=== PATIENT | female | born 1945 | race Caucasian/White ===

== ENCOUNTER 2019-02-16 12:49 | Outpatient (CLI) | payer MEDICARE, OTHER, SELFPAY ==
[2019-02-16 19:03] LABS: Calcium 9.9 mg/dL (8.5-10.1)
[2019-02-17 16:08] LABS: C-Peptide 4.4 ng/mL (1.1 - 4.4)
== END 2019-02-16 13:09 ==
PROVIDERS: PCP Family Medicine; Visit Provider Internal Medicine Endocrinology, Diabetes & Metabolism
DX: E21.0 Primary hyperparathyroidism (principal)
CPT/HCPCS: 36415; 82310; 84681

== ENCOUNTER 2019-03-09 08:44 | Outpatient (CLI) | payer MEDICARE, OTHER, SELFPAY ==
[2019-03-09 10:02] LABS: Abs Immature Grans 0.02 k/cumm (0.0-0.09); Absolute Basophil Count 0.03 k/cumm (0.0-0.2); Absolute Eosinophil Count 0.18 k/cumm (0.0-0.7); Absolute Monocyte Count 0.58 k/cumm (0.11-0.7); Absolute Neutrophil Count 2.98 k/cumm (1.2-6.7); Basophils % 0.5; Eosinophils % 3.1; HCT 42.5 % (36.0-46.0); HGB 13.8 g/dL (12.0-15.5); Immature Grans % 0.3; Lymphocytes % 34.5; Mean Corp. HGB Concentration 32.5 g/dL (32.0-36.0); Mean Corpuscular Hemoglobin 29.4 pg (27.0-33.0); Mean Corpuscular Volume 90.4 fL (80-95); Mean Platelet Volume 9.2 fL (8.0-11.0); Neutrophils % 51.6; Platelet Count 320 x1000/uL (130-400); RBC Distribution Width 13.8 % (11.7-14.6); White Blood Cell Count 5.79 k/cumm (4.4-10.8)
[2019-03-09 10:54] LABS: ESR 23 MM/HR (0-30)
== END 2019-03-09 09:04 ==
PROVIDERS: PCP Family Medicine; Visit Provider Internal Medicine Endocrinology, Diabetes & Metabolism
DX: R53.83 Other fatigue (principal)
CPT/HCPCS: 36415; 85652; 85025; 86140

== ENCOUNTER 2021-05-06 14:30 | Outpatient (REF) | payer MEDICARE, OTHER, SELFPAY ==
[2021-05-08 11:35] LABS: COVID-19 RT-PCR UVMMC Result Negative (Negative)
== END 2021-05-06 14:31 | disposition home or self-care (01) ==
LOC: LBN 14:30
PROVIDERS: PCP Family Medicine; Visit Provider Nurse Practitioner Family
DX: Z20.822 Contact with and (suspected) exposure to COVID-19 (principal); J06.9 Acute upper respiratory infection, unspecified
CPT/HCPCS: U0003; U0005

== ENCOUNTER 2021-05-06 14:58 | Outpatient (CLI) | payer MEDICARE, OTHER, SELFPAY ==
--- NOTE | 2021-05-06 14:42 | DI.RAD_ITS ---
Exam(s) XR CHEST 2V PA LATERAL EXAM: XR CHEST 2V PA LATERAL CLINICAL HISTORY: HYPOXEMIA R09.02 COUGH R05 TECHNIQUE: COMPARISON: CR CHEST 2 VIEWS PA,LAT from 08/23/2016 FINDINGS: The heart is not enlarged. Lungs appear predominantly clear with minimal changes of scarring. No pl eural effusion seen. On the lateral view there is question of increased prominence of the right hilar contour comparison w ith prior chest radiograph August 2016. Possibility of a hilar mass is not excluded. Correlation with chest CT recommended. IMPRESSION: Question right hilar enlargement since August 2016 chest radiograph, chest CT recommended to rule o ut right hilar mass. RADIATION DOSE DELIVERED: Total DLP
== END 2021-05-06 15:18 ==
PROVIDERS: PCP Family Medicine; Visit Provider Nurse Practitioner Family
DX: R09.02 Hypoxemia (principal); R05 Cough
CPT/HCPCS: 71046

== ENCOUNTER 2021-09-11 10:58 | Outpatient (REF) | payer MEDICARE, OTHER, SELFPAY ==
[2021-09-12 16:52] LABS: COVID-19 RT-PCR UVMMC Result Negative (Negative)
== END 2021-09-11 10:59 | disposition home or self-care (01) ==
LOC: LBN 10:58
PROVIDERS: PCP Family Medicine; Visit Provider Physician Assistant Medical
DX: Z20.822 Contact with and (suspected) exposure to COVID-19 (principal); J02.9 Acute pharyngitis, unspecified
CPT/HCPCS: U0003; U0005

== ENCOUNTER 2022-02-02 14:24 | Outpatient (CLI) | payer MEDICARE, OTHER, SELFPAY ==
--- NOTE | 2022-02-02 14:14 | DI.RAD_ITS ---
Exam(s) XR KNEE LT 3V AP,LAT,SARA EXAM: XR KNEE LT 3V AP,LAT,SARA CLINICAL HISTORY: pain. TECHNIQUE: 2D digital imaging was performed. Three images were obtained. AP, lateral and oblique vi ews were obtained. COMPARISON: No priors for comparison. FINDINGS: BONES: There are stable post operative changes present. No fracture or dislocation. Dystrophic calci fication is seen at the superior and inferior aspect of the patella. JOINTS: The orthopedic hardware is in good position. SOFT TISSUE: Normal. IMPRESSION: Stable postoperative changes. DATA REPOSITORY: RADIATION DOSE DELIVERED:
--- NOTE | 2022-02-02 14:15 | DI.RAD_ITS ---
Exam(s) XR KNEE RT 3V AP,LAT,SARA EXAM: XR KNEE RT 3V AP,LAT,SARA CLINICAL HISTORY: pain. TECHNIQUE: 2D digital imaging was performed of the right knee. Three views obtained. AP, lateral an d PA tunnel views were obtained. COMPARISON: No previous for comparison. FINDINGS: BONES: No acute fracture is present. No bony destructive lesion is seen. There is an enthesophyte at the inferior aspect of the patella. JOINTS: There is narrowing of the lateral femoral tibial and patellofemoral joint. Spurring is seen at the posterior patella. A small joint effusion is present. SOFT TISSUE: Normal. IMPRESSION: Mild degenerative changes of the knee. DATA REPOSITORY: RADIATION DOSE DELIVERED:
--- NOTE | 2022-02-02 14:45 | DI.RAD_ITS ---
Exam(s) XR LUMBAR SPINE AP, LAT EXAM: XR LUMBAR SPINE AP, LAT CLINICAL HISTORY: pain. TECHNIQUE: 2D digital imaging was performed of the lumbar spine. Three images were obtained. AP, l ateral, and L5-S1 spot views were obtained. COMPARISON: No previous for comparison. FINDINGS: BONES: No fracture or destructive lesion. Endplate osteophytes are present throughout the lumbar spin e. Degenerative changes of the facets are present at multiple levels, particularly at the L4-5 and L 5-S1 level. DISKS: Disc space narrowing is seen at T12-L1 and L1-L2. ALIGNMENT: Mild right convex lumbar scoliosis. No spondylolysis or spondylolisthesis. SOFT TISSUE: Surgical clips are seen in the right upper quadrant of the abdomen. Phleboliths are see n in the pelvis. IMPRESSION: Moderate degenerative changes. DATA REPOSITORY: RADIATION DOSE DELIVERED:
== END 2022-02-02 14:25 | disposition home or self-care (01) ==
PROVIDERS: PCP Family Medicine; Referring Provider Family Medicine; Visit Provider Physician Assistant Surgical
DX: M70.52 Other bursitis of knee, left knee (principal); M47.9 Spondylosis, unspecified; Z96.652 Presence of left artificial knee joint
CPT/HCPCS: 73562; 99203; 72100

== ENCOUNTER → 2022-02-25 01:54 | Outpatient (CLI) | payer MEDICARE, OTHER, SELFPAY ==
--- NOTE | 2022-02-25 07:00 | DI.MRI_ITS ---
Exam(s) MR LUMBAR SPINE WO EXAM: MR LUMBAR SPINE WO CLINICAL HISTORY: back pain, lumbar radiculopathy,m54.16. TECHNIQUE: Multiplanar multisequence MRI of the Lumbar spine was performed. COMPARISON: CR XR LUMBAR SPINE AP, LAT from 02/02/2022 FINDINGS: Multisequence MRI scan lumbosacral spine was performed. Plain films of 02/02/2022 were reviewed. Conus medullaris is at normal T12-L1 level. There is no evidence of conus mass nor subjacent clumpin g of intrathecal nerve roots to suggest arachnoiditis. The distal thecal sac appears unremarkable.Th ere is no evidence of Tarlov intrasacral cysts nor other significant findings within the sacral canal Bones:There are no fractures nor ominous osseous lesions in the lumbar vertebral bodies and visualize d sacrum. There is a mild scoliosis convex right in the lumbar spine. With respect to the individual levels... T12-L1: Unremarkable L1-2: Normal disc height and signal. No disc herniation nor central canal stenosis.No foraminal steno sis L2-3: Normal disc height. No disc herniation nor central canal stenosis.No foraminal stenosis.No face t arthropathy. L3-4: Mild decreased disc height sent at this level and there is broad annular bulging. This bulging is most severe central posterior subligamentous. More prominent disc height loss seen on the left s katar[place] than the right side. Broad annular bulging results moderate-severe central spinal canal signific ant impression of the anterior thecal sac.There are moderate degenerative changes in the facet joints at this level.The annular bulging does not extend appreciably into the neural foramina and there is no true foraminal stenosis at this level. L4-5: Normal disc height and signal. Mild annular bulging but no significant focal disc herniation. No significant central spinal canal stenosis. There are moderate degenerative changes in both facet joints. There is no significant narrowing of the exiting neural foramina. L5-S1: Normal disc height and signal. No evidence of disc herniation. No central canal stenosis. N o foraminal stenosis. However, there are moderate degenerative changes in both facet joints this. Soft tissues: paraspinal soft tissues appear unremarkable. IMPRESSION: 1. The most significant findings at L3-4 level where there is moderate-severe central spinal canal st enosis due to broad annular bulging with a superimposed central subligamentous disc protrusion. Sign ificant impression on the anterior aspect of thecal sac. Short AP dimensions the pedicles and degene rative facet arthropathy also contributes to the central spinal canal stenosis at this level. There is no true foraminal stenosis at this level. 2. Other findings as above. Mild scoliosis convex right also evident. 3. No significant osseous lesions. No listhesis. DATA REPOSITORY:
== END ==
PROVIDERS: PCP Family Medicine; Visit Provider Student in an Organized Health Care Education/Training Program
DX: M54.16 Radiculopathy, lumbar region (principal)
CPT/HCPCS: 72148

== ENCOUNTER 2022-11-17 10:48 | Emergency (ER) | payer MEDICARE, SELFPAY ==
[2022-11-17 10:52] VITALS: BP 172/79; PULSE 72; RESP 16; TEMP 36.6; O2SAT 95
--- NOTE | 2022-11-17 11:00 | DI.CT_ITS ---
Exam(s) CT CHEST/ABD/PEL WO EXAM: CT CHEST/ABD/PEL WO CLINICAL HISTORY: Right flank pain 3 days status post fall? Rib fx. TECHNIQUE: Imaging Protocol: Axial computed tomography images with coronal and sagittal reformatted images were created and reviewed CONTRAST MATERIAL: Intravenous: none Oral: None COMPARISON: CR XR LUMBAR SPINE AP, LAT from 02/02/2022 MR MR LUMBAR SPINE WO from 02/25/2022 FINDINGS: CHEST: LUNGS: Mild benign-appearing increased markings-mild infiltrate noted in the medial basal segment of the right lower lobe. No pleural effusions. No other pulmonary findings. No bronchiectasis evident . No findings in the trachea and mainstem bronchi.. MEDIASTINUM: No obvious hilar nor mediastinal adenopathy. No mediastinal hematoma. No sternal fractu re. Visualized thyroid appears inhomogeneous. Contains possible nodules. CARDIAC: Heart size is normal. There is no pericardial effusion.Caliber of the thoracic aorta is wit hin normal limits. OSSEOUS: There are deformities of the right transverse processes of L1 and L2 are noted but may not be acute given the appearance.No acute rib fractures evident. No compression fractures of the verteb ral bodies.. ABDOMEN: There is no ascites. No evidence of mesenteric nor bowel wall hematoma. LIVER: There are no obvious focal hepatic lesions evident of this noninfused study. No evidence of l iver laceration. GALLBLADDER/BILIARY: Gallbladder surgically absent. CBD is not dilated. PANCREAS: No evidence of obvious pancreatic mass nor dilatation of the pancreatic duct. SPLEEN: Spleen size upper normal. No evidence of splenic laceration. ADRENALS: There are no significant adrenal masses. KIDNEYS: No evidence of renal laceration or subcapsular hematoma.. No focal renal findings. No calc betsy. No hydronephrosis. No incidental masses in the kidneys. ABDOMINAL AORTA: Abdominal aorta is not enlarged. LYMPH NODES: There is no retroperitoneal nor para-aortic adenopathy. ABDOMINAL WALL/GI: No evidence of significant anterior abdominal wall nor inguinal hernia. No evidence of bowel obstruction. PELVIS: LYMPH NODES: There is no intrapelvic nor inguinal adenopathy. GI: No evidence of appendicitis.There is sigmoid diverticulosis. No evidence of obvious acute divert iculitis. No free fluid. URINARY BLADDER: No calculi nor obvious masses evident REPRODUCTIVE: Uterus is surgically absent. No abnormal adnexal masses. No free fluid in the pelvis. Bilateral phleboliths noted in the lower pelvis. OSSEOUS: No fractures in the pelvis and hips. IMPRESSION: 1. There are deformities of the right transverse processes of L1 and L2. These may be related to non acute fractures. Correlation with site of tenderness recommended. No rib fractures evident. No com pression fractures. 2. Mild benign-appearing increased markings in the right lower lobe medial basal segment. No pleural effusions. 3. Inhomogeneous appearance of the thyroid gland incidentally noted. May represent presence of nodul es. 4. Sigmoid diverticulosis but no evidence of acute diverticulitis. 5. Gallbladder and uterus are surgically absent. Report discussed with ER provider. RADIATION DOSE DELIVERED: 1,661.13mGy.cm Total DLP DATA REPOSITORY: All CT scans at this facility are submitted to the National Radiology Data Registry (NRDR) Dose Index Registry (DIR) with the [employer] (A[employer]). RADIATION OPTIMIZATION: All CT scans at this facility use at least one of these dose optimization te chniques: automated exposure control; mA and/or kV adjustment per patient size (includes targeted exa ms where dose is matched to clinical indication); or iterative reconstruction.
--- NOTE | 2022-11-17 11:07 | ED.GENADUL_ITS ---
Discharge Plan Disposition Patient Disposition: Home Discharge Details Clinical Impression: Right-sided chest wall pain, History of falling, Thyroid incidentaloma Primary Care Provider: Jack Daniel ED Provider: Burt Murphy Home Meds and New Rx's Prescriptions: New lidocaine [Lidoderm] 5 % adhesive patch,medicated 1 patch topical DAILY Qty: 15 0RF Rx Instructions: leave on most painful area for up to 12 hrs Continued cholecalciferol (vitamin D3) 50 mcg (2,000 unit) capsule 50 mcg PO DAILY Alive Once Daily Women 50 Plus 800-100 mcg tablet PO sumatriptan succinate [Imitrex] 50 mg tablet 50 mg PO ONCE fluticasone propion-salmeterol [Advair Diskus] 100-50 mcg/dose blister with device 1 inh inhalation BID vitamin B complex [B Complex-Vitamin B12] Tablet 1 tab PO DAILY omeprazole [Prilosec] 20 mg capsule,delayed release(DR/EC) 40 mg PO DAILY hydrochlorothiazide 25 mg tablet 25 mg PO DAILY sertraline 25 mg tablet 50 mg PO DAILY propranolol 10 mg tablet 10 mg PO BID bupropion HCl 300 mg tablet extended release 24 hr 300 mg PO QAM aspirin [Aspir-81] 81 MG tablet,delayed release (DR/EC) 81 mg PO DAILY losartan 25 MG tablet 25 mg PO QAM albuterol sulfate [ProAir HFA] 200 PUFF HFA aerosol inhaler 2 puff Inhalation Q6H PRN PRNQty: 1 0RF (DME) AeroChamber Plus Z Stat Sm Msk 1 EACH spacer 1 ea Miscellaneous Q6H PRN Qty: 1 0RF bupropion HCl 300 mg tablet extended release 24 hr 300 mg PO DAILY Discharge Instructions Instructions: Chest Wall Pain (ED) Additional Instructions: Please read all of the information that accompanies these instructions. You were seen in the emergency department for your chest pain. Your CAT scan showed no sign of any rib fractures. As we discussed, your CAT scan did show signs that you may have a nodule in your thyroid. Please schedule an appointment with your primary care provider later this week for reassessment as she would likely benefit from an ultrasound of her thyroid. Please return to the emergency department if you develop shortness of breath any worsening pain or any rashes to your chest. Discharge Data Discharge Date/Time-TO BE ENTERED AT DEPARTURE: 11/17/22 14:23 Medical Decision Making This is a normothermic and not tachycardic 77-year-old female with right flank pain 3 days status post slip and fall concerning for rib fractures. Her primary survey is intact. She has a reassuring shock index. She is not anticoagulated. She did not strike her head to suggest benefit from CT head. She is not having any neck or back pain to suggest benefit from CT cervical spine nor T nor L reconstructions. She has not been nauseous nor vomiting to suggest intra- abdominal injury. She did not have any preceding loss of consciousness nor chest pain so I do not feel this requires an ECG. No syncope to suggest PE. She has not been vomiting to suggest benefit from assessment of electrolytes. Based on her age if she has rib fractures will complete incentive spirometry. Will treat with low-dose ibuprofen acetaminophen and Lidoderm patch. 2:[address] scan with no acute rib fractures. Patient did have some deformities to the right transverse processes at L1 and L2. She had no tenderness in this area and these are likely subacute. She did have an abnormality in her thyroid for which I will reach out to her primary care provider to request an outpatient thyroid ultrasound. Patient does note that she has parathyroid disease. I ordered her an outpatient thyroid ultrasound. I asked health community services manager Mary to help arrange outpatient primary care follow-up. HPI General Date/Time Provider Initiated Documentation: 11/17/22 11:07 . HPI Narrative: This is a 77-year-old female with remote history of cholecystectomy not anticoagulated arriving following a fall. Patient reports she lives with her . 3 days ago she was going out to the shed to try to bring something indoors and then she slipped on the ice. She landed on a chunk of ice on her right side. She was able to stand up and subsequently fell again. She felt too sore on the day of her fall to come to the emergency department. She felt im proved yesterday however today developed some right-sided flank pain. Her pain is worse when she takes a deep breath. She denies chest pain, loss of consciousness, nausea, vomiting, and any pain in her extremities. Related Data Home Medications Medication Instructions Recorded Confirmed aspirin 81 mg tablet,delayed 81 mg PO DAILY 01/28/13 11/17/22 release (Aspir-) losartan 25 mg tablet 25 mg PO QAM 07/06/14 11/17/22 albuterol sulfate 90 mcg/actuation 2 puff inhalation Q6H PRN PRN #1 08/23/16 02/04/22 aerosol inhaler (ProAir HFA) inh inhalational spacing device ##1 08/23/16 02/04/22 (AeroChamber Plus Z Stat Small Mask) bupropion HCl 300 mg 24 hr tablet, 300 mg PO QAM 12/09/21 02/04/22 extended release cholecalciferol (vitamin D3) 50 50 mcg PO DAILY 12/09/21 11/17/22 mcg (2,000 unit) capsule fluticasone 100 mcg-salmeterol 50 1 inh inhalation BID 12/09/21 02/04/22 mcg/dose blistr powdr for inhalation (Advair Diskus) hydrochlorothiazide 25 mg tablet 25 mg PO DAILY 12/09/21 11/17/22 multivit,mineral-folic acid 800 tab PO 12/09/21 02/04/22 mcg-vit K 100 mcg-herbal no.289 tablet (Alive Once Daily Women 50 Plus) omeprazole 20 mg capsule,delayed 40 mg PO DAILY 12/09/21 11/17/22 release (Prilosec) propranolol 10 mg tablet 10 mg PO BID 12/09/21 02/04/22 sertraline 25 mg tablet 50 mg PO DAILY 12/09/21 11/17/22 sumatriptan succinate 50 mg tablet 50 mg PO ONCE 12/09/21 02/04/22 (Imitrex) vitamin B complex (B 1 tab PO DAILY 12/09/21 02/04/22 Complex-Vitamin B12 tablet) bupropion HCl 300 mg 24 hr tablet, 300 mg PO DAILY 11/17/22 11/17/22 extended release lidocaine 5 % topical patch 1 patch topical DAILY #15 ea 11/17/22 (Lidoderm) Previous Rx's Medication Instructions Recorded albuterol sulfate 90 mcg/actuation 2 puff inhalation Q6H PRN PRN #1 08/23/16 aerosol inhaler (ProAir HFA) inh inhalational spacing device ##1 08/23/16 (AeroChamber Plus Z Stat Small Mask) lidocaine 5 % topical patch 1 patch topical DAILY #15 ea 11/17/22 (Lidoderm) Allergies Allergy/AdvReac Type Severity Reaction Status Date / Time iodine Allergy Severe Anaphylaxsi Unverified 02/02/22 14:05 s shellfish derived Allergy Severe Anaphylaxsi Unverified 02/02/22 14:05 s General Stated Complaint: Chest/Rib FAHAD: 4 PFSH All Active Problems (Updated 11/17/22 @ 14:10 by Burt Murphy MD) Right-sided chest wall pain (Acute) History of falling (Acute) Thyroid incidentaloma (Acute) Pes anserine bursitis (Acute) Spondylosis (Acute) Cardiac murmur (Acute) ECHO 10/2014 Hyperlipidemia (Acute) Osteoporosis (Chronic) Hyperparathyroidism (Acute) Asthma, mild intermittent (Acute) Depression (Chronic) Hypertension (Chronic) Sensorineural hearing loss of combined sites, bilateral (Acute 07/20/16) Prognathism (Acute 12/12/14) Obstructive sleep apnea (Acute 12/12/14) Medical History (Updated 11/17/22 @ 14:10 by Burt Murphy MD) Abnormal colonoscopy De Quervain's tenosynovitis GERD (gastroesophageal reflux disease) Retinal detachment Tubular adenoma polyp of rectum Surgical History (Updated 12/09/21 @ 09:33 by Nathan Multani RN) H/O umbilical hernia repair History of appendectomy 1976 History of cholecystectomy 1976 History of hysterectomy total w/BSO--1984 History of local excision of skin lesion 06/04/17 History of total left knee replacement 05/13/15 Social History Smoking/Tobacco Use Status: Never Smoking risk assessment performed?: Yes Drug use: Never Do you feel safe at home: Yes Do you feel safe in your relationship?: Yes Exam Narrative Exam Narrative: General: Well-appearing in no acute distress speaking in complete sentences. Head: Normocephalic, atraumatic Ear, nose, mouth, throat: Grossly normal inspection. Normal voice, handling secretions normally. Neck: Trachea midline. Cardiovascular: Well-perfused distal extremities. Regular rate and rhythm Respiratory: Nonlabored respiration. Clear lungs bilaterally. Gastrointestinal: Nondistended abdomen. Right-sided flank and superficial right upper quadrant tenderness. No rebound. No ecchymoses. No lacerations. Musculoskeletal: No edema. Moving all 4 extremities spontaneously. Skin: Normal for age and race, grossly normal temperature and turgor. No acute rash. Neurologic: Alert and appropriate, no apparent acute deficits. Psychiatric: Mood and manner are appropriate. Grooming and personal hygiene are appropriate. Course Vital Signs Vital signs: Vital Signs Temperature 36.6 C 11/17/22 10:52 Pulse 72 11/17/22 10:52 Respiratory Rate 16 11/17/22 10:52 Blood Pressure 172/79 H 11/17/22 10:52 Pulse Oximetry 95 11/17/22 10:52 Temperature 36.6 C 11/17/22 10:52 Temperature Source Oral 11/17/22 10:52 Pulse 72 11/17/22 10:52 Respiratory Rate 16 11/17/22 10:52 Blood Pressure 172/79 H 11/17/22 10:52 Blood Pressure Position Sitting 11/17/22 10:52 Pulse Oximetry 95 11/17/22 10:52 Oxygen Delivery Method Room Air 11/17/22 10:52 Oxygen Flow Rate 0 11/17/22 10:52 Pain Level 8 11/17/22 10:52 Comment Takes BP meds in AM but has not had them yet today 11/17/22 10:52
[2022-11-17] MEDS: Lidocaine 5% Patch 1 PATCH TP (11:28)
[2022-11-17] MEDS: Ibuprofen 200 MG TAB PO (11:29)
[2022-11-17] MEDS: Acetaminophen 500 MG TAB 1000 MG PO (11:29)
[2022-11-17 12:44] VITALS: BP 133/85; PULSE 65; TEMP 36.4; O2SAT 92
[2022-11-17 14:22] VITALS: BP 143/82; PULSE 66; RESP 18; TEMP 36.2; O2SAT 91
--- NOTE | 2022-11-17 15:15 | NUR.NOTE ---
Referral made by Dr Murphy to PCP for incidental thyroid abnormality in 10 days. Put the referral in the care manger's box for follow up assistance.Nursing Note:
== END 2022-11-17 14:23 | disposition home or self-care (01) ==
PROVIDERS: Emergency Provider Emergency Medicine; PCP Family Medicine
DX: R07.89 Other chest pain (principal); E04.1 Nontoxic single thyroid nodule; Z91.81 History of falling; G89.11 Acute pain due to trauma; W00.0XXA Fall on same level due to ice and snow, initial encounter; R10.811 Right upper quadrant abdominal tenderness
CPT/HCPCS: 71250; 99284; 74176

== ENCOUNTER 2022-12-02 01:20 | Outpatient (CLI) | payer MEDICARE, SELFPAY ==
--- NOTE | 2022-12-02 | DI.US_ITS ---
Exam(s) US THYROID EXAM: US THYROID CLINICAL HISTORY: ABNL CT OF THYROID,INHOMOGENEOUS APPEARANCE,? NODULES. TECHNIQUE: Ultrasound thyroid performed using standard protocol. COMPARISON: CT CT CHEST/ABD/PEL WO from 11/17/2022 FINDINGS: ISTHMUS: 6 mm RIGHT LOBE: Size: 3.5 x 1.6 x 1.9 cm Echogenicity: Normal. Vascularity: Normal. Nodules: There is a 0.6 x 0.4 x 0.6 cm solid hypoechoic nodule in the right lobe of the thyroid gland . It has smooth margins and no echogenic foci. Is consistent with a TI rads level 4 nodule. Due to its size, no follow-up is recommended. No other suspicious right thyroid nodules are seen. LEFT LOBE: Size: 3.4 x 1.8 x 1.5 cm Echogenicity: Normal. Vascularity: Normal. Nodules: There is small cysts seen in the left lobe. No suspicious thyroid nodules are present. OTHER FINDINGS: None. IMPRESSION: No suspicious thyroid nodules are seen that would require follow-up. DATA REPOSITORY:
== END 2022-12-02 01:40 ==
LOC: DI 01:21
PROVIDERS: PCP Family Medicine; Visit Provider Emergency Medicine
DX: E04.1 Nontoxic single thyroid nodule (principal); E07.89 Other specified disorders of thyroid
CPT/HCPCS: 76536

== ENCOUNTER 2023-02-01 16:19 | Outpatient (CLI) | payer MEDICARE, SELFPAY ==
--- NOTE | 2023-02-01 | DI.RAD_ITS ---
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 TECHNIQUE: 2D digital imaging was performed. Three views. COMPARISON: No exams were available for comparison FINDINGS: BONES: Mildly displaced fracture of the proximal phalanx of the 2nd toe. No involvement of the artic ular surface visible. No additional fractures.. No bony destructive lesion is seen. Planet plantar calcaneal spur. JOINTS: No dislocation present. SOFT TISSUE: Normal. IMPRESSION: Fracture of proximal phalanx of the 2nd toe. DATA REPOSITORY: RADIATION DOSE DELIVERED:
== END 2023-02-01 16:39 ==
LOC: DI 16:21
PROVIDERS: PCP Family Medicine; Visit Provider Physician Assistant Medical
DX: S92.515A Nondisplaced fracture of proximal phalanx of left lesser toe(s), initial encounter for closed fracture (principal); X58.XXXA Exposure to other specified factors, initial encounter
CPT/HCPCS: 73630

== ENCOUNTER 2023-09-23 13:05 | Outpatient (CLI) | payer MEDICARE, SELFPAY ==
--- NOTE | 2023-09-23 09:46 | DI.RAD_ITS ---
Exam(s) XR LUMBAR SPINE AP, LAT EXAM: XR LUMBAR SPINE AP, LAT CLINICAL HISTORY: left hip pain. TECHNIQUE: 2D digital imaging was performed of the lumbar spine. Two images were obtained. AP and lateral views were obtained. COMPARISON: CR XR LUMBAR SPINE AP, LAT from 02/02/2022 MR MR LUMBAR SPINE WO from 02/25/2022 FINDINGS: BONES: No fracture or destructive lesion. Endplate osteophytes are present throughout the lumbar spin e. There are degenerative changes of the facets seen at L4-5 and L5-S1. DISKS: There is disc space narrowing at T12-L1. ALIGNMENT: Lumbar spinal alignment is within normal limits. No spondylolysis or spondylolisthesis. SOFT TISSUE: Surgical clips are seen in the right upper quadrant. IMPRESSION: Moderate degenerative changes are seen in the lumbar spine. DATA REPOSITORY: RADIATION DOSE DELIVERED:
== END 2023-09-23 13:06 | disposition home or self-care (01) ==
LOC: DIORS 13:05
PROVIDERS: PCP Family Medicine; Referring Provider Family Medicine; Visit Provider Student in an Organized Health Care Education/Training Program
DX: M47.9 Spondylosis, unspecified (principal); M70.62 Trochanteric bursitis, left hip; R29.898 Other symptoms and signs involving the musculoskeletal system
CPT/HCPCS: 99213; 72100

== ENCOUNTER 2023-11-18 09:43 | Outpatient (CLI) | payer MEDICARE, SELFPAY ==
[2023-11-18 13:27] LABS: Anion Gap 7.2 mmol/L (3-11); BUN 21 mg/dL (7-18); CO2 31.8 mmol/L (21.0-32.0); CREATININE 1.1 mg/dL (0.55-1.02); Calcium 9.4 mg/dL (8.5-10.1); Chloride 103 mmol/L (98-107); Estimated GFR 52.08 (mL/min/1.73m2); Glucose 96 mg/dL (74-106); Potassium 3.6 mmol/L (3.5-5.1); Sodium 142 mmol/L (136-145)
[2023-11-18 14:56] LABS: Vitamin D 25 Total 47.9 ng/mL (30-100)
== END 2023-11-18 09:44 | disposition home or self-care (01) ==
LOC: LBO 09:51
PROVIDERS: PCP Family Medicine; Visit Provider Internal Medicine Endocrinology, Diabetes & Metabolism
DX: M81.0 Age-related osteoporosis without current pathological fracture (principal)
CPT/HCPCS: 36415; 80048; 82306

== ENCOUNTER 2023-11-24 16:34 | Outpatient (CLI) | payer MEDICARE, SELFPAY ==
--- NOTE | 2023-11-24 06:00 | DI.RAD_ITS ---
Exam(s) XR PAIN CLINIC LUMBAR SP 2V EXAM: XR PAIN CLINIC LUMBAR SP 2V CLINICAL HISTORY: DX: Lumbar radiculopathy TECHNIQUE: 2D and realtime digital imaging was performed. Radiologist not present. CONTRAST MATERIAL: None. COMPARISON: No exams were available for comparison FINDINGS: Fluoroscopy was provided for pain management therapy. Please refer to procedure report or details. Radiation Exposure Index: Ka,r=6.3 mGy IMPRESSION: As above. RADIATION DOSE DELIVERED:
[2023-11-24 16:47] VITALS: BP 149/79; PULSE 64; RESP 20; TEMP 36.7; O2SAT 96
--- NOTE | 2023-11-24 17:06 | PDOC.PAIN_ITS ---
Date of service: 11/24/23 Time of Service: 17:06 Pain Managment Procedure Note Procedure Note Procedure Note: PROCEDURE NOTE LUMBAR EPIDURAL STEROID INJECTION Date of Service: November 24, 2023 Patient:Cdoie Gresham? Provider: Jamie Amaya DO, MPH Codie Kirkpatrick has been referred to the [facility] for a lumbar epidural steroid injection. Pre-operative diagnosis: Lumbosacral Radiculopathy Post-operative diagnosis: Same Pre-Procedure Pain: VAS= 7 /10 Comments: She has a documented contrast allergy, thus the contrast was removed. I previously evaluated her in the clinic and her symptoms have remained the same. Codie was interviewed and the medical record was reviewed.? There were no medical, pharmacologic, radiographic or other structural contraindications to attempting fluoroscopically guided Lumbar epidural steroid injection.? Risks, potential side effects, indications, and potential benefits of the procedure were reviewed with Codie.? Questions and concerns were addressed.? After it was clear that Codie was fully informed about the procedure, the printed consent form was signed by the patient and myself.? Codie was placed in the prone position on the fluoroscopy table and automated blood pressure cuff and pulse oximeter applied. The skin entry point for entering/approaching the epidural space for the lumbar epidural steroid injection was marked. Following thorough chlorhexadine preparation of the skin and draping and 1% lidocaine infiltration of the skin entry point and subcutaneous tissues, an 18 gauge Touhy needle was placed and advanced under fluoroscopic guidance and with loss of resistance technique into the L5-S1 epidural space. Needle tip placement and depth were aided and confirmed by fluoroscopy. There was no paresthesia or return of blood or CSF through the needle. 80 mg of Depo-Medrol was? injected. This was followed by 1 ml of preservative-free normal saline to flush the steroid out of the needle. There was no unusual discomfort expressed by Codie. The needle was withdrawn without difficulty. (49 mls of Omnipaque was wasted) Codie was observed and was without hemodynamic, neurologic, or allergic reactions.? Fluoroscopic images were digitally archived. Codie's vital signs were stable throughout the procedure and were as recorded in nursing records. Follow up plans and appointments were discussed with Codie. Post procedure instruction was given as documented in nursing records and having met discharge criteria Codie was discharged from the [facility]. COMMENTS: No apparent complications. Post-procedure pain: VAS= 0/10. Codie to contact [facility] as needed. If at least 50% improvement in pain and/or function for at least 3 months is achieved, this procedure can be repeated. I personally performed this entire procedure. JAMIE AMAYA DO, MPH ABPMR-subspecialty board certification in Pain Medicine [facility]
[2023-11-24] MEDS: Dexamethasone Sod. Phos./Pres-Free 10 MG/ML VIAL IJ (17:16)
[2023-11-24] MEDS: Epidural Tray 1 EACH MC (17:20)
[2023-11-24 17:21] VITALS: BP 155/73; PULSE 67; RESP 15; O2SAT 94
== END 2023-11-24 16:35 | disposition home or self-care (01) ==
LOC: PC 16:34
PROVIDERS: PCP Family Medicine; Visit Provider Preventive Medicine Occupational Medicine
DX: M54.50 Low back pain, unspecified (principal); M54.17 Radiculopathy, lumbosacral region
CPT/HCPCS: 123; 62323; 72100; 00123; J1100

== ENCOUNTER 2024-05-30 02:32 | Outpatient (CLI) | payer MEDICARE, SELFPAY ==
[2024-05-30 10:35] LABS: Calcium 9.8 mg/dL (8.5-10.1); Vitamin D 25 Total 49.8 ng/mL (30-100)
[2024-05-30 18:59] LABS: Parathyroid Hormone,Intact 91 pg/mL (19-88)
== END 2024-05-30 02:33 | disposition home or self-care (01) ==
LOC: LBO 02:32
PROVIDERS: PCP Family Medicine; Visit Provider Internal Medicine Endocrinology, Diabetes & Metabolism
DX: M81.0 Age-related osteoporosis without current pathological fracture (principal)
CPT/HCPCS: 36415; 82306; 82310; 83970

== ENCOUNTER 2024-06-01 14:46 | Outpatient (CLI) | payer MEDICARE, SELFPAY ==
[2024-06-01 15:54] LABS: Vitamin B12 607 pg/mL (193-986)
[2024-06-01 15:55] LABS: Folate > 20.0 ng/mL (8.6-20.0)
== END 2024-06-01 14:47 | disposition home or self-care (01) ==
LOC: LBO 14:47
PROVIDERS: PCP Family Medicine; Visit Provider Nurse Practitioner Primary Care
DX: R79.89 Other specified abnormal findings of blood chemistry (principal); E53.8 Deficiency of other specified B group vitamins
CPT/HCPCS: 36415; 82607; 82746

== ENCOUNTER 2024-07-19 15:34 | Emergency (ER) | payer MEDICARE, SELFPAY ==
[2024-07-19 15:47] VITALS: BP 145/76; PULSE 71; RESP 20; TEMP 36.3; O2SAT 94
[2024-07-19 15:52] VITALS: BP 145/76; PULSE 71; RESP 20; TEMP 36.3; O2SAT 94
--- NOTE | 2024-07-19 16:13 | ED.GENADUL_ITS ---
Discharge Plan Disposition Patient Disposition: Home Condition: Stable Discharge Details Clinical Impression: Bronchitis Primary Care Provider: Jack Daniel ED Provider: Modesto Martínez Home Meds and New Rx's Prescriptions: New azithromycin 250 mg tablet 250 mg PO DAILY 4 Days Qty: 4 0RF Rx Instructions: start on day 2 of therapy Continued capsaicin [Salonpas-Hot] 0.025 % adhesive patch,medicated 1 patch topical BID PRN Rx Instructions: do not leave patch on for more than 8 hrs cholecalciferol (vitamin D3) 25 mcg (1,000 unit) capsule 25 mcg PO DAILY gabapentin 100 mg capsule 100 mg PO BID Alive Once Daily Women 50 Plus 800-100 mcg tablet 1 tab PO DAILY sumatriptan succinate [Imitrex] 50 mg tablet 50 mg PO ONCE fluticasone propion-salmeterol [Advair Diskus] 100-50 mcg/dose blister with device 1 inh inhalation BID vitamin B complex [B Complex-Vitamin B12] Tablet 1 tab PO DAILY omeprazole [Prilosec] 20 mg capsule,delayed release(DR/EC) 40 mg PO DAILY hydrochlorothiazide 25 mg tablet 25 mg PO DAILY propranolol 10 mg tablet 10 mg PO BID lisinopril 10 mg tablet 10 mg PO DAILY sertraline 100 mg tablet 100 mg PO DAILY aspirin [Aspir-81] 81 MG tablet,delayed release (DR/EC) 81 mg PO DAILY losartan 25 MG tablet 25 mg PO QAM albuterol sulfate [ProAir HFA] 200 PUFF HFA aerosol inhaler 2 puff Inhalation Q6H PRN PRNQty: 1 0RF (DME) AeroChamber Plus Z Stat Sm Msk 1 EACH spacer 1 ea Miscellaneous Q6H PRN Qty: 1 0RF lidocaine [Lidoderm] 5 % adhesive patch,medicated 1 patch topical DAILY Qty: 15 0RF Rx Instructions: leave on most painful area for up to 12 hrs Discharge Instructions Instructions: Azithromycin (Systemic), Bronchitis, Adult ED Additional Instructions: You were seen in the emergency department for your cough that is worsening over 9 days now having productive cough with green thick sputum. I am diagnosing you with bronchitis, there was no pneumonia seen on your chest x-ray, I have sent a prescription for the antibiotic azithromycin to take for the next 5 days to your pharmacy, we did supply you with a new asthma inhaler for your mild shortness of breath, otherwise your vital signs are good, please take 650 mg of Tylenol every 6 hours, you can also take 400 mg of ibuprofen every 6 hours to help with aches and pains and generalized inflammation of the body due to respiratory infection. Please return to the emergency department for any severe increase in shortness of breath, respiratory distress, coughing up blood, intractable nausea or vomiting, chest pain, or other emergent concerns. Referrals: Jack Daniel [Primary Care Provider] - HPI General Date/Time Provider Initiated Documentation: 07/19/24 16:13 . HPI Narrative: 79 year-old female presents to ED today by POV/ambulating with a chief complaint of 9 days of a cold, with worsening mild shortness of breath, and starting to have a productive cough of green sputum. Quality described as general malaise, no radiation to nausea/vomiting, profound shortness of breath, chest pain, high fevers. Severity is described as moderate. Palliating factors include nothing specific. Provoking factors include nothing specific. Patient not anticoagulated. Related Data Home Medications ?Medication ?Instructions ?Recorded ?Confirmed aspirin 81 mg tablet,delayed 81 mg PO DAILY 01/28/13 07/19/24 release (Aspir-) losartan 25 mg tablet 25 mg PO QAM 07/06/14 07/19/24 albuterol sulfate 90 mcg/actuation 2 puff inhalation Q6H PRN PRN #1 08/23/16 07/19/24 aerosol inhaler (ProAir HFA) inh inhalational spacing device ##1 08/23/16 07/19/24 (AeroChamber Plus Z Stat Small Mask) fluticasone 100 mcg-salmeterol 50 1 inh inhalation BID 12/09/21 07/19/24 mcg/dose blistr powdr for inhalation (Advair Diskus) hydrochlorothiazide 25 mg tablet 25 mg PO DAILY 12/09/21 07/19/24 multivit,mineral-folic acid 800 1 tab PO DAILY 12/09/21 07/19/24 mcg-vit K 100 mcg-herbal no.289 tablet (Alive Once Daily Women 50 Plus) omeprazole 20 mg capsule,delayed 40 mg PO DAILY 12/09/21 07/19/24 release (Prilosec) propranolol 10 mg tablet 10 mg PO BID 12/09/21 07/19/24 sumatriptan succinate 50 mg tablet 50 mg PO ONCE 12/09/21 07/19/24 (Imitrex) vitamin B complex (B 1 tab PO DAILY 12/09/21 07/19/24 Complex-Vitamin B12 tablet) lidocaine 5 % topical patch 1 patch topical DAILY #15 ea 11/17/22 07/19/24 (Lidoderm) lisinopril 10 mg tablet 10 mg PO DAILY 07/20/23 07/19/24 sertraline 100 mg tablet 100 mg PO DAILY 07/20/23 07/19/24 capsaicin 0.025 % topical patch 1 patch topical BID PRN 10/21/23 07/19/24 (Salonpas-Hot) cholecalciferol (vitamin D3) 25 25 mcg PO DAILY 10/21/23 07/19/24 mcg (1,000 unit) capsule gabapentin 100 mg capsule 100 mg PO BID 10/21/23 07/19/24 azithromycin 250 mg tablet 250 mg PO DAILY 4 days #4 tabs 07/19/24 Previous Rx's ?Medication ?Instructions ?Recorded albuterol sulfate 90 mcg/actuation 2 puff inhalation Q6H PRN PRN #1 08/23/16 aerosol inhaler (ProAir HFA) inh inhalational spacing device ##1 08/23/16 (AeroChamber Plus Z Stat Small Mask) lidocaine 5 % topical patch 1 patch topical DAILY #15 ea 11/17/22 (Lidoderm) azithromycin 250 mg tablet 250 mg PO DAILY 4 days #4 tabs 07/19/24 Allergies Allergy/AdvReac Type Severity Reaction Status Date / Time iodine Allergy Severe Anaphylaxsi Unverified 07/19/24 15:53 s shellfish derived Allergy Severe Anaphylaxsi Unverified 07/19/24 15:53 s General Stated Complaint: RespSymp FAHAD: 3 Review of Systems All systems reviewed & are unremarkable except as noted in HPI and below Exam Narrative Exam Narrative: GENERAL APPEARANCE: Well-nourished, non-toxic, awake and alert, atraumatic, no acute distress. SKIN: Warm, pink, dry, intact, without rashes/lesions/ulcerations. HEAD: Normocephalic, atraumatic, normal hair distribution for gender/age. EYES: Normal conjunctiva, no exudates on lids/lashes. ENT: Nares patent, no circumoral cyanosis, no facial swelling NECK: Supple, trachea midline, painless cervical ROM. LUNGS/CHEST: Lungs CTA bilaterally- no overt wheezing, no rhonchi, no rales, coarse in L base vs R, non-labored respirations, normal A/P diameter, symmetrical expansion, no chest wall deformity HEART (CV/PV): Regular rate and rhythm without murmur, no peripheral edema, no JVD. ABDOMEN: Soft, non-distended, no guarding. MSK: Normal ROM, no swelling/deformity to bilateral UEs or LEs, moving all extremities without weakness, no cyanosis, spine midline without tenderness, normal curvature. NEURO: Mental Status AAOx4 - alert to person, place, time, events No facial droop, no forehead involvement. Motor: No focal weakness - strength 5/5 in bilateral UEs and LEs, proximal and distal, symmetric. Sensory: sensation intact to light touch globally. Gait normal: patient ambulated without ataxia into ED room. PSYCH: euthymic, cooperative, pleasant, appropriate speech Course Vital Signs Vital signs: Vital Signs Temperature 36.3 C L 07/19/24 15:47 Pulse 71 07/19/24 15:47 Respiratory Rate 20 07/19/24 15:47 Blood Pressure 145/76 H 07/19/24 15:47 Pulse Oximetry 94 07/19/24 15:47 Temperature 36.3 C L 07/19/24 15:52 Pulse 71 07/19/24 15:52 Respiratory Rate 20 07/19/24 15:52 Respiratory Effort Short of Breath 07/19/24 16:09 Respiratory Depth Normal 07/19/24 16:09 Blood Pressure 145/76 H 07/19/24 15:52 Blood Pressure Position Sitting 07/19/24 15:52 Pulse Oximetry 94 07/19/24 15:52 Oxygen Delivery Method Room Air 07/19/24 15:52 Oxygen Flow Rate 0 07/19/24 15:47 Medical Decision Making This dictation utilizes [id number] dictation software and may contain unedited grammatical errors. 79 year-old female presents to ED today by POV/ambulating with a chief complaint of 9 days of a cold, with worsening mild shortness of breath, and starting to have a productive cough of green sputum. Quality described as general malaise, no radiation to nausea/vomiting, profound shortness of breath, chest pain, high fevers. Severity is described as moderate. Palliating factors include nothing specific. Provoking factors include nothing specific. Patients' medical history: Mild intermittent asthma, hypertension, obstructive sleep apnea. Family and social history: Non-smoker, no sick contacts recent travel. Pertinent exam findings / vital signs include lungs CTA with mildly coarse adventitious lung sounds in the left base, benign abdomen, benign cardiac exam, neuro intact, nontoxic vitals, afebrile. Differential / pathologies of concern include Upper Respiratory Infection, Lower Respiratory Infection, Asthma Exacerbation. Diagnostic studies of: -POC Covid/Flu, CXR. -Covid/Flu neg -CXR no PNA Interventions of: -Empiric ABX due to 9 day onset, worsening with now productive cough, bronchitis. ED Course/Assessment/Plan: 79-year-old female presents with 9 days of worsening cough and mild shortness of breath in the setting of mild intermittent asthma, has no evidence of pneumonia on chest x-ray but does have a productive cough with green sputum, empiric antibiotics for bronchitis and azithromycin started here in the ED and I did provide her with an albuterol inhaler as she does not know if she has hers or not. I counseled her on therapeutic dosing of Tylenol and ibuprofen and strict return criteria for any worsening. Findings not consistent with hypoxic respiratory failure, pneumonia, sepsis, toxic vital signs. Disposition of Bronchitis. Patient verbalized understanding of the plan and return to ED criteria and engaged in shared decision making. Medical Records Medical records reviewed: Yes I reviewed the patient's medical records. Imaging Data Radiologic Study: Attestation: I personally reviewed and interpreted this imaging study as follows: Imaging: X-Ray Radiologist's impression: EXAM: XR CHEST 2V PA LATERAL CLINICAL HISTORY: cough. TECHNIQUE: 2D digital imaging was performed. COMPARISON: CR XR CHEST 2V PA LATERAL from 05/06/2021 FINDINGS: 2 views: Heart size is normal. The mediastinum is not widened. Lungs are clear. No infiltrates nor pleural effusions. Surgical clips are seen in the right upper quadrant of the abdomen consistent with prior cholecystectomy. IMPRESSION: No acute pulmonary findings. Lab Data Lab results reviewed: Yes I reviewed the patient's lab results. Lab results narrative: POC Covid/Flu negative Quality:SDOH Health Related Social Needs: No Data to Display PFSH All Active Problems (Updated 07/19/24 @ 16:46 by EDWARD Miller) Bronchitis (Acute) Lumbar spinal stenosis (Acute) Trochanteric bursitis, left hip (Acute) Bilateral leg weakness (Acute) Pes anserine bursitis (Acute) Spondylosis (Acute) Cardiac murmur (Acute) ECHO 10/2014 Hyperlipidemia (Acute) Osteoporosis (Chronic) Hyperparathyroidism (Acute) Asthma, mild intermittent (Acute) Depression (Chronic) Hypertension (Chronic) Sensorineural hearing loss of combined sites, bilateral (Acute 07/20/16) Prognathism (Acute 12/12/14) Obstructive sleep apnea (Acute 12/12/14) Medical History Essential tremor Dysphagia Diabetic polyneuropathy Abnormal colonoscopy Retinal detachment De Quervain's tenosynovitis Tubular adenoma polyp of rectum GERD (gastroesophageal reflux disease) Surgical History H/O umbilical hernia repair History of local excision of skin lesion 06/04/17 History of total left knee replacement 05/13/15 History of cholecystectomy 1976 History of appendectomy 1976 History of hysterectomy total w/BSO--1984 Social History Smoking/Tobacco Use Status: Never Smoking risk assessment performed?: Yes Drug use: Never Substance use type: does not use Do you feel safe at home: Yes Do you feel safe in your relationship?: Yes
--- NOTE | 2024-07-19 16:33 | DI.RAD_ITS ---
Exam(s) XR CHEST 2V PA LATERAL EXAM: XR CHEST 2V PA LATERAL CLINICAL HISTORY: cough. TECHNIQUE: 2D digital imaging was performed. COMPARISON: CR XR CHEST 2V PA LATERAL from 05/06/2021 FINDINGS: 2 views: Heart size is normal. The mediastinum is not widened. Lungs are clear. No infiltrates nor pleural effusions. Surgical clips are seen in the right upper quadrant of the abdomen consistent with prior cholecystect angie. IMPRESSION: No acute pulmonary findings. DATA REPOSITORY: RADIATION DOSE DELIVERED:
[2024-07-19] MEDS: Inhaler, Assist Device 1 EACH MC (17:15)
[2024-07-19] MEDS: Albuterol HFA 8 GM 60 PUFF INH IH (17:17)
[2024-07-19] MEDS: Azithromycin 250 MG TAB 500 MG PO (17:18)
== END 2024-07-19 17:27 | disposition home or self-care (01) ==
PROVIDERS: Emergency Provider Physician Assistant; PCP Family Medicine
DX: J40 Bronchitis, not specified as acute or chronic (principal); E11.40 Type 2 diabetes mellitus with diabetic neuropathy, unspecified; Z79.82 Long term (current) use of aspirin
CPT/HCPCS: 99284; 71046; 99283

== ENCOUNTER 2024-09-28 16:07 | Emergency (ER) | payer MEDICARE, SELFPAY ==
[2024-09-28] VITALS (32 sets, daily range): BP systolic 116–169; BP diastolic 44–71; PULSE 53–58; RESP 11–22; TEMP 36.5; O2SAT 74–100
--- NOTE | 2024-09-28 16:00 | RT.EKG_ITS ---
APPROVED REPORT Exam: Resting ECG Reason for Exam: chest pain Patient Location: E HR:55 bpm ECG Measurements Heart Rate 55 AXIS TX 193 P 31 QRSd 90 QRS 36 QT 444 T 56 QTc 426 Conclusion Sinus bradycardia, rate 55 No interval abnormalities No STEMI No recent priors available
[2024-09-28 16:41] LABS: Abs Immature Grans 0.02 10^3/uL (0.0-0.06); Absolute Basophil Count 0.03 10^3/uL (0.0-0.2); Absolute Eosinophil Count 0.19 10^3/uL (0.0-0.7); Absolute Lymphocyte Count 2.54 10^3/uL (1.2-3.4); Absolute Monocyte Count 0.66 10^3/uL (0.1-0.8); Absolute Neutrophil Count 4.48 10^3/uL (1.2-6.7); Basophils % 0.4 %; Eosinophils % 2.4 %; HCT 43.1 % (36.0-46.0); HGB 13.7 g/dL (11.2-15.7); Immature Grans % 0.3 %; Lymphocytes % 32.1 %; MCHC 31.8 % (32.0-36.0); MCV 91 fL (80-95); MPV 8.9 fL (8.0-11.0); Monocytes % 8.3 %; Neutrophils % 56.5 %; Platelet Count 275 10^3/uL (130-400); RBC 4.73 10^6/uL (3.93-5.22); RDW 13.2 % (11.7-14.6); RDW-SD 44.8 fL; WBC 7.92 10^3/uL (4.4-10.8)
[2024-09-28 17:03] LABS: ALT 24 U/L (14-59); AST 17 U/L (15-37); Albumin 3.4 g/dL (3.4-5.0); Alkaline Phosphatase 85 U/L (46-116); Anion Gap 5.4 mmol/L (3-11); BUN 21 mg/dL (7-18); Bilirubin, Total 0.41 mg/dL (0.2-1.0); CO2 33.6 mmol/L (21.0-32.0); CREATININE 1.1 mg/dL (0.55-1.02); Calcium 9.5 mg/dL (8.5-10.1); Chloride 104 mmol/L (98-107); Estimated GFR 51.75 (mL/min/1.73m2); Glucose 100 mg/dL (74-106); Lipase 18 U/L (<78); Potassium 3.8 mmol/L (3.5-5.1); Sodium 143 mmol/L (136-145); Total Protein 6.9 g/dL (6.4-8.2); Troponin I 5 ng/L (<or=51)
--- NOTE | 2024-09-28 17:24 | ED.GENADUL_ITS ---
Discharge Plan Disposition Patient Disposition: Home Condition: Stable Discharge Details Clinical Impression: Pressure in chest, Obstructive sleep apnea, Hyperlipidemia, Hypertension, Asthma, mild intermittent Primary Care Provider: Jack Daniel ED Provider: Bel Pedro Home Meds and New Rx's Prescriptions: No Action capsaicin [Salonpas-Hot] 0.025 % adhesive patch,medicated 1 patch topical BID PRN Rx Instructions: do not leave patch on for more than 8 hrs cholecalciferol (vitamin D3) 25 mcg (1,000 unit) capsule 25 mcg PO DAILY gabapentin 100 mg capsule 100 mg PO BID Alive Once Daily Women 50 Plus 800-100 mcg tablet 1 tab PO DAILY sumatriptan succinate [Imitrex] 50 mg tablet 50 mg PO ONCE fluticasone propion-salmeterol [Advair Diskus] 100-50 mcg/dose blister with device 1 inh inhalation BID vitamin B complex [B Complex-Vitamin B12] Tablet 1 tab PO DAILY omeprazole [Prilosec] 20 mg capsule,delayed release(DR/EC) 40 mg PO DAILY hydrochlorothiazide 25 mg tablet 25 mg PO DAILY propranolol 10 mg tablet 10 mg PO BID lisinopril 10 mg tablet 10 mg PO DAILY sertraline 100 mg tablet 100 mg PO DAILY aspirin [Aspir-81] 81 MG tablet,delayed release (DR/EC) 81 mg PO DAILY losartan 25 MG tablet 25 mg PO QAM albuterol sulfate [ProAir HFA] 200 PUFF HFA aerosol inhaler 2 puff Inhalation Q6H PRN PRNQty: 1 0RF (DME) AeroChamber Plus Z Stat Sm Msk 1 EACH spacer 1 ea Miscellaneous Q6H PRN Qty: 1 0RF lidocaine [Lidoderm] 5 % adhesive patch,medicated 1 patch topical DAILY Qty: 15 0RF Rx Instructions: leave on most painful area for up to 12 hrs lamotrigine 25 mg tablet 25 mg PO BID Patient Comments: TAKE 1 TABLET BY MOUTH DAILY FOR 7 DAYS, THEN INCREASE TO 2 TABLETS DAILY Discharge Instructions Instructions: Chest Pain, Adult ED Additional Instructions: You were seen in the emergency department today for evaluation of discomfort in your chest over the last 3 nights. In our department you have a full physical examination performed, had an EKG that showed no evidence of tachycardia or heart attack. You had reassuring laboratory studies, and an x-ray that was normal. Your chest pain has gone away and it is safe for you to go home and continue to follow-up with your primary care provider. Specifically, you need to make sure that you follow their plan to have the Holter monitor set up, and call to schedule a repeat appointment for reevaluation. Unfortunately, we are sometimes unable to determine the exact cause of symptoms here in the emergency department, which is why you need to be reevaluated in a timely fashion. Please continue to use your prescribed medications including your albuterol inhaler, and thank you for allowing us to be part of your care. HPI General Mode of arrival: ambulatory . Date/Time Provider Initiated Documentation: 09/28/24 16:30 . Limitations to Documentation: no limitations . Information obtained by: patient and old records reviewed . HPI Narrative: HPI: This is a 79-year-old female patient with a past medical history significant for hyperlipidemia, asthma, hypertension, and ANA who is presenting for evaluation for heart issues. The patient reports that for the last few nights she has noted a slight discomfort in her chest, which seems to resolve shortly after it occurs. She states that this is not a pain or pressure, and she has not been able to identify any specific propagating or palliating factors. Initially she thought that this was just her asthma, which is intermittent and for which she has been using her inhaled albuterol as needed. She was seen by her primary care provider today for evaluation, who ordered her a Holter monitor. However, she recommended that she come in to be seen in the emergency department given the chest pain component to her symptoms. The patient reports that in the clinic she was noted to be tachycardic, though she is notably bradycardic here in the high 50s. The patient reports that she is not experiencing cough or shortness of breath, fevers or chills, nausea or vomiting, nor diaphoresis. Exam: Gen: Awake and alert, in no apparent distress HEENT: Non-icteric sclera Neck: Supple Lungs: No apparent respiratory distress, normal respiratory effort. Lung sounds clear and equal, scattered occasional soft expiratory wheeze but no rhonchi, rales CV: Appears well perfused, heart with bradycardic rate but regular rhythm, strong distal pulses. Chest wall is not tender to palpation Abdomen: Non-distended, soft, nontender MSK: Moves 4 extremities without apparent limitation in ROM. No peripheral edema, no unilateral calf swelling or tenderness. Skin: Visualized skin without rashes, cyanosis. Neuro: Normal Gait, no obvious focal deficits or facial asymmetry. Speaks in full, clear sentences. Psych: Appropriate for situation. MDM: This is a 79-year-old female patient presenting for evaluation of chest discomfort. Differential includes but is not limited to ACS including STEMI, NSTEMI, unstable angina, considered arrhythmia, pericarditis/myocarditis, pneumonia, reactive airway disease exacerbation, pleurisy, costochondritis. The patient has no evidence of fluid overload nor history of heart failure to suggest pulmonary edema, pleural effusion or heart failure exacerbation. No abdominal symptoms to suggest Boerhaave's, gastritis or esophagitis, pancreatitis. The patient is currently pain-free, hemodynamically appropriate, and we obtained an EKG that shows sinus bradycardia without evidence of ischemia, interval abnormality, or ectopy. We will obtain laboratory studies to include CBC, CMP, magnesium, troponin, and will obtain a chest x-ray. We will keep the patient on telemetry to evaluate for arrhythmias. ED Course: I independently interpreted the laboratory studies, which show no significant leukocytosis, anemia, or thrombocytopenia. The chemistry panel is without evidence of electrolyte abnormality, kidney dysfunction, or liver injury. The patient does have a very mild elevation in her bicarb likely due to her history of ANA, has no elevation in her troponin nor her lipase. Given the duration of symptoms and her lack of current chest pain she does not meet criteria for delta troponin trending. Chest x-ray shows no acute abnormalities to account for her symptoms. I did recommend that she continue to use her albuterol inhaler as needed for symptoms of wheezing. While monitored on telemetry has her change from her sinus bradycardia, and I recommended that she call her clinic to schedule follow-up for reevaluation and continue to move forward with the plan for Holter monitoring. At this time, the patient has had a full medical evaluation and is safe for discharge to home. They are hemodynamically stable, ambulatory, and tolerating PO. They are understanding of the follow-up plan and return precautions. They left our facility without incident. Bel Pedro MD Related Data Home Medications ?Medication ?Instructions ?Recorded ?Confirmed aspirin 81 mg tablet,delayed 81 mg PO DAILY 01/28/13 09/28/24 release (Aspir-) losartan 25 mg tablet 25 mg PO QAM 07/06/14 09/28/24 albuterol sulfate 90 mcg/actuation 2 puff inhalation Q6H PRN PRN #1 08/23/16 09/28/24 aerosol inhaler (ProAir HFA) inh inhalational spacing device ##1 08/23/16 09/28/24 (AeroChamber Plus Z Stat Small Mask) fluticasone 100 mcg-salmeterol 50 1 inh inhalation BID 12/09/21 09/28/24 mcg/dose blistr powdr for inhalation (Advair Diskus) hydrochlorothiazide 25 mg tablet 25 mg PO DAILY 12/09/21 09/28/24 multivit,mineral-folic acid 800 1 tab PO DAILY 12/09/21 09/28/24 mcg-vit K 100 mcg-herbal no.289 tablet (Alive Once Daily Women 50 Plus) omeprazole 20 mg capsule,delayed 40 mg PO DAILY 12/09/21 09/28/24 release (Prilosec) propranolol 10 mg tablet 10 mg PO BID 12/09/21 09/28/24 sumatriptan succinate 50 mg tablet 50 mg PO ONCE 12/09/21 09/28/24 (Imitrex) vitamin B complex (B 1 tab PO DAILY 12/09/21 09/28/24 Complex-Vitamin B12 tablet) lidocaine 5 % topical patch 1 patch topical DAILY #15 ea 11/17/22 09/28/24 (Lidoderm) lisinopril 10 mg tablet 10 mg PO DAILY 07/20/23 09/28/24 sertraline 100 mg tablet 100 mg PO DAILY 07/20/23 09/28/24 capsaicin 0.025 % topical patch 1 patch topical BID PRN 10/21/23 09/28/24 (Salonpas-Hot) cholecalciferol (vitamin D3) 25 25 mcg PO DAILY 10/21/23 09/28/24 mcg (1,000 unit) capsule gabapentin 100 mg capsule 100 mg PO BID 10/21/23 09/28/24 lamotrigine 25 mg tablet 25 mg PO BID 09/28/24 09/28/24 Previous Rx's ?Medication ?Instructions ?Recorded albuterol sulfate 90 mcg/actuation 2 puff inhalation Q6H PRN PRN #1 08/23/16 aerosol inhaler (ProAir HFA) inh inhalational spacing device ##1 08/23/16 (AeroChamber Plus Z Stat Small Mask) lidocaine 5 % topical patch 1 patch topical DAILY #15 ea 11/17/22 (Lidoderm) Allergies Allergy/AdvReac Type Severity Reaction Status Date / Time iodine Allergy Severe Anaphylaxsi Verified 09/28/24 16:16 s shellfish derived Allergy Severe Anaphylaxsi Verified 09/28/24 16:16 s General Stated Complaint: Chest Pain FAHAD: 2 Course Vital Signs Vital signs: Vital Signs Pulse 54 L 09/28/24 16:11 Respiratory Rate 20 09/28/24 16:11 Blood Pressure 169/67 H 09/28/24 16:11 Pulse Oximetry 96 09/28/24 16:11 Pulse 53 L 09/28/24 17:01 Pulse 56 L 09/28/24 17:10 Respiratory Rate 18 09/28/24 17:10 Respiratory Effort Short of Breath 09/28/24 16:48 Respiratory Depth Normal 09/28/24 16:48 Respiratory Pattern Normal 09/28/24 16:48 Blood Pressure 116/62 09/28/24 17:01 Blood Pressure Mean 81 09/28/24 17:01 Pulse Oximetry 99 09/28/24 17:01 Oxygen Delivery Method Room Air 09/28/24 16:11 Oxygen Flow Rate 0 09/28/24 16:11 Pain Level 4 09/28/24 16:11 Lab/Test Results Lab/Test Results: Laboratory Tests Range/Units 09/28/24 09/28/24 09/28/24 16:29 17:37 19:37 WBC (4.4-10.8) 10^3/uL 7.92 RBC (3.93-5.22) 10^6/uL 4.73 Hgb (11.2-15.7) g/dL 13.7 Hct (36.0-46.0) % 43.1 MCV (80-95) fL 91 MCH (27.0-33.0) pg 29.0 MCHC (32.0-36.0) % 31.8 L RDW (11.7-14.6) % 13.2 Plt Count (130-400) 10^3/uL 275 MPV (8.0-11.0) fL 8.9 Immature Gran % % 0.3 Neutrophils % % 56.5 Lymphocytes % % 32.1 Monocytes % % 8.3 Eosinophils % % 2.4 Basophils % % 0.4 Nucleated RBC % (0.0-0.3) % 0.0 Absolute Neutrophils (1.2-6.7) 10^3/uL 4.48 Absolute Lymphocytes (1.2-3.4) 10^3/uL 2.54 Absolute Monocytes (0.1-0.8) 10^3/uL 0.66 Absolute Eosinophils (0.0-0.7) 10^3/uL 0.19 Absolute Basophils (0.0-0.2) 10^3/uL 0.03 Sodium (136-145) mmol/L 143 Potassium (3.5-5.1) mmol/L 3.8 Chloride (98-107) mmol/L 104 Carbon Dioxide (21.0-32.0) mmol/L 33.6 H Anion Gap (3-11) mmol/L 5.4 BUN (7-18) mg/dL 21 H Creatinine (0.55-1.02) mg/dL 1.1 H Est GFR (CKD-EPI 2020) (mL/min/1.73m2) 51.75 Glucose (74-106) mg/dL 100 Calcium (8.5-10.1) mg/dL 9.5 Magnesium (1.8-2.4) mg/dL 2.0 Total Bilirubin (0.2-1.0) mg/dL 0.41 AST (15-37) U/L 17 ALT (14-59) U/L 24 Alkaline Phosphatase (46-116) U/L 85 Troponin I (<or=51) ng/L 5 Cancelled Cancelled Total Protein (6.4-8.2) g/dL 6.9 Albumin (3.4-5.0) g/dL 3.4 Lipase (<78) U/L 18 Medical Decision Making Quality:SDOH Health Related Social Needs: No Data to Display PFSH All Active Problems (Updated 09/28/24 @ 18:43 by Bel Pedro MD) Pressure in chest (Acute) Lumbar spinal stenosis (Acute) Trochanteric bursitis, left hip (Acute) Bilateral leg weakness (Acute) Pes anserine bursitis (Acute) Spondylosis (Acute) Cardiac murmur (Acute) ECHO 10/2014 Hyperlipidemia (Acute) Osteoporosis (Chronic) Hyperparathyroidism (Acute) Asthma, mild intermittent (Acute) Depression (Chronic) Hypertension (Chronic) Sensorineural hearing loss of combined sites, bilateral (Acute 07/20/16) Prognathism (Acute 12/12/14) Obstructive sleep apnea (Acute 12/12/14) Medical History Essential tremor Dysphagia Diabetic polyneuropathy Abnormal colonoscopy Retinal detachment De Quervain's tenosynovitis Tubular adenoma polyp of rectum GERD (gastroesophageal reflux disease) Surgical History H/O umbilical hernia repair History of local excision of skin lesion 06/04/17 History of total left knee replacement 05/13/15 History of cholecystectomy 1976 History of appendectomy 1976 History of hysterectomy total w/BSO--1984 Social History Smoking/Tobacco Use Status: Never Smoking risk assessment performed?: Yes Alcohol Intake: never Drug use: Never Substance use type: does not use Housing: house Do you feel safe at home: Yes Do you feel safe in your relationship?: Yes
--- NOTE | 2024-09-28 17:53 | DI.RAD_ITS ---
Exam(s) XR CHEST 2V PA LATERAL EXAM: XR CHEST 2V PA LATERAL CLINICAL HISTORY: Chest pain. TECHNIQUE: 2D digital imaging was performed. COMPARISON: CR CHEST 2 VIEWS PA,LAT from 08/23/2016 CR XR CHEST 2V PA LATERAL from 05/06/2021 CR XR CHEST 2V PA LATERAL from 07/19/2024 FINDINGS: 2 views: Heart size is normal. The mediastinum is not widened. Right hilum appears slightly more prominent than April 2021 study. However, unchanged from chest x- ray of August 2016. Therefore probably prominent right hilar vessel. No confluent infiltrates nor pleural effusions. No pulmonary edema. IMPRESSION: Slight prominence of the right hilum-parahilar region which is unchanged from 2016. No acute pulmona ry findings. DATA REPOSITORY: RADIATION DOSE DELIVERED:
== END 2024-09-28 19:17 | disposition home or self-care (01) ==
PROVIDERS: Emergency Provider Emergency Medicine; PCP Family Medicine
DX: R07.89 Other chest pain (principal); G47.33 Obstructive sleep apnea (adult) (pediatric); E78.5 Hyperlipidemia, unspecified; I10 Essential (primary) hypertension; J45.20 Mild intermittent asthma, uncomplicated
CPT/HCPCS: 36415; 80053; 83690; 93005; 99285; 71046; 83735; 84484; 85025; 93010; 99284

== ENCOUNTER 2024-10-02 09:01 | Outpatient (CLI) | payer MEDICARE, SELFPAY ==
[2024-10-02 09:10] VITALS: BP 128/70; PULSE 55; RESP 20; TEMP 37; O2SAT 98
--- NOTE | 2024-10-02 09:19 | PDOC.PAIN ---
Date of service: 10/02/24 Time of Service: 10:15 Pain Managment Procedure Note Procedure Note Procedure Note: Lumbar Interlaminar Epidural Steroid Injection ? Location: [L5-S1] ? Pre-procedure Diagnosis: [M54.16- Radiculopathy, LUMBAR region] ? Post-procedure Diagnosis:? The same as above ? Sedation:? ? None ? Medication: Depo-Medrol 80 mg ? Estimated blood loss:? less than 2 cc ? Surgeon:? Camron Rahman MD COMMENT: Patient has moderate to severe stenosis at L3-4. She is status post an epidural steroid injection in November 2023 which gave her up to 9 months relief. This was with dexamethasone and L5-S1 because of concern for contrast allergy though patient had allergy to lobster but this was anaphylactic so I decided to forego contrast as well. ? Procedure Detail:? The procedure and potential risks were explained to the patient and informed written consent was obtained. The patient was escorted to the procedure room and placed in the prone position. Pillows were utilized for proper positioning and comfort. Time out was performed in the procedure room with nursing staff confirming the patient's identity, procedure to be performed, allergies, and any blood thinning or anti-platelet medications.? The patient's neck and upper back was prepped with ChloraPrep and draped in a sterile fashion. Sterile technique was maintained throughout the procedure.? Sterile gloves were used, a face mask was worn, and new single dose vials of all medications were used with the top being swabbed with alcohol and given time to dry prior to withdrawal of medication. Lidocane 1% was used to anesthetize the skin.Using a 25-gauge 1.5 inch needle, 1% lidocaine was instilled into the superficial soft tissue overlying the targeted area to provide local anesthesia. An attempt was first made with a 3.5 inch needle at L4-5. Bony obstruction was encountered and needle was hubbed. With fluoroscopic guidance, a 5 17 -gauge Tuohy needle was advanced toward the interlaminar space of L5-S1. The needle was then advance through the ligamentum flavum and into the posterior epidural space using the loss of resistance technique. Correct needle placement was confirmed through review of the AP and contralateral oblique fluoroscopic views. A 19-gauge arrow catheter was threaded cephalad slightly Following negative aspiration, 1 cc's of normal saline and 1 cc lidocaine 1% with 80mg of Depo-Medrol was injected. The needle was gently removed. The patient tolerated the procedure well and was transported to the recovery area for observation and discharge instructions. Permanent images saved and recorded. PAIN PRE-PROCEDURE 10 POST-PROCEDURE 010 Plan:? Follow up prn. COMMENT: If not improving would repeat lumbar MRI as last 1 was from 2021
--- NOTE | 2024-10-02 10:10 | DI.RAD_ITS ---
Exam(s) XR PAIN CLINIC LUMBAR SP 2V EXAM: XR PAIN CLINIC LUMBAR SP 2V CLINICAL HISTORY: DX: Lumbar Radiculopathy. TECHNIQUE: Fluoroscopy was provided for the referring physician for guidance with performing pain cl inic injection procedure. COMPARISON: No exams were available for comparison FINDINGS: Please see procedure note for details. Fluoro time: 33.7 seconds RADIATION DOSE DELIVERED: Ka,r=19.51 mGy
[2024-10-02] MEDS: methylPREDNISolone ACETATE 40 MG/ML VIAL IJ (10:11)
[2024-10-02] MEDS: Epidural Tray 1 EACH MC (10:12)
== END 2024-10-02 09:02 | disposition home or self-care (01) ==
LOC: PC 09:02
PROVIDERS: PCP Family Medicine; Visit Provider Anesthesiology Pain Medicine
DX: M54.50 Low back pain, unspecified (principal); M54.16 Radiculopathy, lumbar region
CPT/HCPCS: 00123; 62323; 72100; J1010

== ENCOUNTER 2024-10-31 16:02 | Outpatient (CLI) | payer MEDICARE, SELFPAY ==
--- NOTE | 2024-10-31 | DI.RAD_ITS ---
Exam(s) XR CHEST 2V PA LATERAL EXAM: XR CHEST 2V PA LATERAL CLINICAL HISTORY: Mild intermittent asthma with acute exacerbation, J45.21; cough x 2 weeks;. TECHNIQUE: 2D digital imaging was performed. COMPARISON: CR XR CHEST 2V PA LATERAL from 09/28/2024 FINDINGS: 2 views: Heart size is normal. The mediastinum is not widened. Lungs are clear. No infiltrates nor pleural effusions. Prominence of the right infra-parahilar region is unchanged from 2016. IMPRESSION: No acute pulmonary findings. DATA REPOSITORY: RADIATION DOSE DELIVERED:
--- NOTE | 2024-10-31 16:53 | DI.VRAD_ITS ---
PROCEDURE INFORMATION: Exam: XR Chest Exam date and time: 10/31/2024 4:22 PM Age: 79 years old Clinical indication: Shortness of breath; Mild intermittent asthma with acute exacerbation; Cough x 2 weeks; SOB with exertion TECHNIQUE: Imaging protocol: Radiologic exam of the chest. Views: 2 views. COMPARISON: CR XR CHEST 2V PA LATERAL 09/28/2024 5:43 PM FINDINGS: Lungs: The lung beck show no acute infiltrates or effusions. There is prominence of the right hilum. This may reflect pulmonary artery enlargement but underlying adenopathy of course can not be excluded. Pleural spaces: No effusions or pneumothoraces. Heart/Mediastinum: The heart is not enlarged. The superior mediastinum is unremarkable. Bones/joints: There are mild diffuse degenerative changes of the thoracic spine without acute bony change. IMPRESSION: 1. No acute infiltrate identified. 2. Prominent right hilum which may represent pulmonary arterial hypertension but underlying adenopathy can not be excluded and if clinically indicated recommend more sensitive evaluation with a chest CT scan or chest CTA study. Dictated and Authenticated by: Harsha Del Rosario MD. Orderin ARLIN PALMA MD
== END 2024-10-31 16:22 ==
PROVIDERS: PCP Family Medicine; Visit Provider Nurse Practitioner Family
DX: J45.21 Mild intermittent asthma with (acute) exacerbation (principal)
CPT/HCPCS: 71046

== ENCOUNTER 2024-10-31 22:22 | Outpatient (REF) | payer MEDICARE, SELFPAY ==
[2024-10-31 23:06] LABS: COVID-19 PCR Negative (Negative); Influenza A PCR Negative (Negative); Influenza B PCR Negative (Negative); RSV PCR Negative (Negative)
[2024-10-31 23:07] LABS: Source Nasopharynx
== END 2024-10-31 22:23 | disposition home or self-care (01) ==
LOC: LBN 22:22
PROVIDERS: PCP Family Medicine; Visit Provider Nurse Practitioner Family
DX: J45.21 Mild intermittent asthma with (acute) exacerbation (principal)
CPT/HCPCS: 87637

== ENCOUNTER 2024-11-16 10:42 | Outpatient (RCR) | payer MEDICARE, SELFPAY | END 2024-11-21 23:59 | disposition home or self-care (01) | LOC: CARDOPNVT 10:42 | PROVIDERS: PCP Nurse Practitioner Family; Visit Provider Internal Medicine Cardiovascular Disease | DX: R00.0 Tachycardia, unspecified (principal) | CPT/HCPCS: 93227; 93225; 93226 ==

== ENCOUNTER 2024-11-18 10:00 | Outpatient (RCR) | payer MEDICARE, SELFPAY ==
--- NOTE | 2024-11-21 12:28 | W.HOLTRPT ---
Date of service: 11/21/24 Time of Service: 12:28 Holter Monitor Report Referring Provider:: Kayla Grant Indications:: Tachycardia Holter Monitor Note: This is a 48-hour Holter monitor. Rhythm throughout was sinus with an average heart rate of 58. Minimum was 48 maximum 127. There are very rare isolated atrial and ventricular ectopic beats. There was no atrial fibrillation, no high-grade AV block, no pauses greater than 3 seconds. No symptoms were reported
== END 2024-12-18 23:59 | disposition home or self-care (01) ==
LOC: CARDOPNVT 10:00
PROVIDERS: PCP Nurse Practitioner Family; Visit Provider Internal Medicine Cardiovascular Disease
DX: R00.0 Tachycardia, unspecified (principal)
CPT/HCPCS: 93227; 93226

== ENCOUNTER 2024-12-24 06:53 | Emergency (ER) | payer MEDICARE, SELFPAY ==
[2024-12-24 07:05] VITALS: BP 152/73; PULSE 64; RESP 14; TEMP 37; O2SAT 96
--- NOTE | 2024-12-24 07:15 | DI.CT_ITS ---
Exam(s) CT CHEST WO EXAM: CT CHEST WO CLINICAL HISTORY: left sided chest pain s/p fall yesterday. TECHNIQUE: Imaging protocol: Axial computed tomography images were obtained and coronal and sagittal reformatted images were created and reviewed. Lung Computer Aided Detection (CAD) was utilized. COMPARISON: CT CT CHEST/ABD/PEL WO from 11/17/2022 CR,XR XR CHEST 2V PA LATERAL from 10/31/2024 FINDINGS: Tracheobronchial tree: Patent where visualized. No bronchiectasis is present. Pulmonary parenchyma: No consolidation or dominant measurable mass. A stable 2 mm nodule in the poste rolateral aspect of the right middle lobe. No new or suspicious pulmonary nodules are present. Mediastinum and Ginger: No dominant adenopathy or fluid collection. The esophagus is unremarkable. Thyroid gland: Unremarkable. Pleura: No effusion or pneumothorax. Heart: The heart is not dilated. Mild 2 vessel coronary artery calcification is present. No pericard ial effusion. Aorta: Thoracic aorta non-dilated. Atherosclerotic calcification is present. Upper abdomen: Status post cholecystectomy. Lymph nodes: Within normal limits. Soft tissues: Unremarkable. Bones:Within normal limits for the patient's age. There are mildly displaced acute fractures of the left 6th, 7th and 8th ribs laterally. IMPRESSION: 1. No acute pulmonary infiltrate, pleural effusion or pneumothorax. 2. Mildly displaced acute fractures involving the left 6th, 7th and 8th ribs laterally. RADIATION DOSE DELIVERED: 333.55mGy.cm Total DLP 333.55mGy.cm Total DLP DATA REPOSITORY: All CT scans at this facility are submitted to the National Radiology Data Registry (NRDR) Dose Index Registry (DIR) with the [employer] ([employer]). RADIATION OPTIMIZATION: All CT scans at this facility use at least one of these dose optimization te chniques: automated exposure control; mA and/or kV adjustment per patient size (includes targeted exa ms where dose is matched to clinical indication); or iterative reconstruction.
--- NOTE | 2024-12-24 07:19 | ED.GENADUL_ITS ---
Discharge Plan Disposition Patient Disposition: Home Condition: Stable Discharge Details Clinical Impression: Chest wall contusion Primary Care Provider: Kayla Grant ED Provider: Alfredo Lagunas Home Meds and New Rx's Prescriptions: New lidocaine 5 % adhesive patch,medicated 1 patch topical DAILY PRN (Reason: pain) Qty: 30 0RF Rx Instructions: leave on most painful area for up to 12 hrs Continued capsaicin [Salonpas-Hot] 0.025 % adhesive patch,medicated 1 patch topical BID PRN Rx Instructions: do not leave patch on for more than 8 hrs cholecalciferol (vitamin D3) 25 mcg (1,000 unit) capsule 25 mcg PO DAILY gabapentin 100 mg capsule 100 mg PO BID Alive Once Daily Women 50 Plus 800-100 mcg tablet 1 tab PO DAILY sumatriptan succinate [Imitrex] 50 mg tablet 50 mg PO ONCE fluticasone propion-salmeterol [Advair Diskus] 100-50 mcg/dose blister with device 1 inh inhalation BID vitamin B complex [B Complex-Vitamin B12] Tablet 1 tab PO DAILY omeprazole [Prilosec] 20 mg capsule,delayed release(DR/EC) 40 mg PO DAILY hydrochlorothiazide 25 mg tablet 25 mg PO DAILY propranolol 10 mg tablet 10 mg PO BID lisinopril 10 mg tablet 10 mg PO DAILY sertraline 100 mg tablet 100 mg PO DAILY aspirin [Aspir-81] 81 MG tablet,delayed release (DR/EC) 81 mg PO DAILY losartan 25 MG tablet 25 mg PO QAM albuterol sulfate [ProAir HFA] 200 PUFF HFA aerosol inhaler 2 puff Inhalation Q6H PRN PRNQty: 1 0RF (DME) AeroChamber Plus Z Stat Sm Msk 1 EACH spacer 1 ea Miscellaneous Q6H PRN Qty: 1 0RF lidocaine [Lidoderm] 5 % adhesive patch,medicated 1 patch topical DAILY Qty: 15 0RF Rx Instructions: leave on most painful area for up to 12 hrs lamotrigine 25 mg tablet 25 mg PO BID Patient Comments: TAKE 1 TABLET BY MOUTH DAILY FOR 7 DAYS, THEN INCREASE TO 2 TABLETS DAILY Discharge Instructions Additional Instructions: Your CAT scan did not show any broken bones. You likely have a chest wall and rib contusion which will heal with time. You can take 1000 mg of acetaminophen every 6 hours as needed, do not exceed 3000 mg in a 24-hour period. You can take an occasional dose of 600 mg ibuprofen. If not improving within a week follow-up with your primary care provider. If you feel significantly more ill or have new symptoms such as high fevers return to the emergency department for reevaluation HPI General Mode of arrival: EMS . Date/Time Provider Initiated Documentation: 12/24/24 06:55 . Limitations to Documentation: no limitations . Information obtained by: patient . History of Present Illness 79 year old F presents to the emergency department with the chief complaint of left sided chest pain s/p fall, described as moderate, Quality is described as aching, Patient started experiencing this day(s) (1) and it has been constant. No relieving factors improve symptom(s), Other factors that worsen symptoms (palpation) . Patient notes no other symptoms.. Patient did receive the following treatments prior to arrival, none Related Data Home Medications ?Medication ?Instructions ?Recorded ?Confirmed aspirin 81 mg tablet,delayed 81 mg PO DAILY 01/28/13 12/24/24 release (Aspir-) losartan 25 mg tablet 25 mg PO QAM 07/06/14 12/24/24 albuterol sulfate 90 mcg/actuation 2 puff inhalation Q6H PRN PRN #1 08/23/16 12/24/24 aerosol inhaler (ProAir HFA) inh inhalational spacing device ##1 08/23/16 12/24/24 (AeroChamber Plus Z Stat Small Mask) fluticasone 100 mcg-salmeterol 50 1 inh inhalation BID 12/09/21 12/24/24 mcg/dose blistr powdr for inhalation (Advair Diskus) hydrochlorothiazide 25 mg tablet 25 mg PO DAILY 12/09/21 12/24/24 multivit,mineral-folic acid 800 1 tab PO DAILY 12/09/21 12/24/24 mcg-vit K 100 mcg-herbal no.289 tablet (Alive Once Daily Women 50 Plus) omeprazole 20 mg capsule,delayed 40 mg PO DAILY 12/09/21 12/24/24 release (Prilosec) propranolol 10 mg tablet 10 mg PO BID 12/09/21 12/24/24 sumatriptan succinate 50 mg tablet 50 mg PO ONCE 12/09/21 12/24/24 (Imitrex) vitamin B complex (B 1 tab PO DAILY 12/09/21 12/24/24 Complex-Vitamin B12 tablet) lidocaine 5 % topical patch 1 patch topical DAILY #15 ea 11/17/22 12/24/24 (Lidoderm) lisinopril 10 mg tablet 10 mg PO DAILY 07/20/23 12/24/24 sertraline 100 mg tablet 100 mg PO DAILY 07/20/23 12/24/24 capsaicin 0.025 % topical patch 1 patch topical BID PRN 10/21/23 12/24/24 (Salonpas-Hot) cholecalciferol (vitamin D3) 25 25 mcg PO DAILY 10/21/23 12/24/24 mcg (1,000 unit) capsule gabapentin 100 mg capsule 100 mg PO BID 10/21/23 12/24/24 lamotrigine 25 mg tablet 25 mg PO BID 09/28/24 12/24/24 lidocaine 5 % topical patch 1 patch topical DAILY PRN pain #30 12/24/24 ea Previous Rx's ?Medication ?Instructions ?Recorded albuterol sulfate 90 mcg/actuation 2 puff inhalation Q6H PRN PRN #1 08/23/16 aerosol inhaler (ProAir HFA) inh inhalational spacing device ##1 08/23/16 (AeroChamber Plus Z Stat Small Mask) lidocaine 5 % topical patch 1 patch topical DAILY #15 ea 11/17/22 (Lidoderm) lidocaine 5 % topical patch 1 patch topical DAILY PRN pain #30 12/24/24 ea Allergies Allergy/AdvReac Type Severity Reaction Status Date / Time iodine Allergy Severe Anaphylaxsi Verified 12/24/24 07:08 s shellfish derived Allergy Severe Anaphylaxsi Verified 12/24/24 07:08 s General Stated Complaint: Chest/Rib FAHAD: 4 Review of Systems All systems reviewed & are unremarkable except as noted in HPI and below Constitutional Constitutional: Denies chills, Denies fever(s) and Denies weakness Cardiovascular Cardiovascular: Reports chest pain and Denies dyspnea Respiratory Respiratory: Denies cough and Denies dyspnea Gastrointestinal Gastrointestinal: Denies abdominal pain, Denies nausea and Denies vomiting Neurologic Neurologic: Denies weakness Exam Const General: no acute distress Orientation: alert HENMT Head: normal to inspection Ears: external ears normal General nose exam: external nose normal Mouth: moist mucous membranes Eyes General: appearance normal, both eyes and all related structures Neck Neck: normal visual inspection Chest Chest: tenderness Resp Effort & Inspection: normal respiratory effort and able to speak in complete sentences Auscultation: clear to auscultation bilaterally Cardio Jugular venous pressure: no JVD Rate: regular rate GI Palpation: soft and nontender Skin General skin exam: no rashes or lesions noted Neuro General: patient alert and patient oriented x3 Extrem General: normal to inspection Psych Mental Status: mental status grossly normal Course Vital Signs Vital signs: Vital Signs Temperature 37.0 C 12/24/24 07:05 Pulse 64 12/24/24 07:05 Respiratory Rate 14 12/24/24 07:05 Blood Pressure 152/73 H 12/24/24 07:05 Pulse Oximetry 96 12/24/24 07:05 Temperature 37.0 C 12/24/24 07:05 Temperature Source Oral 12/24/24 07:05 Pulse 64 12/24/24 07:05 Respiratory Rate 14 12/24/24 07:05 Blood Pressure 152/73 H 12/24/24 07:05 Blood Pressure Position Sitting 12/24/24 07:05 Pulse Oximetry 96 12/24/24 07:05 Pain Level 10 12/24/24 07:05 Medical Decision Making 79-year-old female who states she falls frequently comes in with EMS with left- sided chest pain after she fell yesterday. She says that she was just standing and she lost balance falling onto her buttocks and her left side. She did not hit her head or have loss of consciousness. She has had left-sided chest pain worsening since the fall so came here for evaluation. She is alert and oriented on arrival in no distress. She has no signs of trauma to the head. She denies any head pain, neck pain, back pain, abdomen pain or extremity pain. She has reproducible tenderness in the left side of her chest in the anterior x-ray line over the 4th through 6th ribs. There is no palpable deformities. Clear lung sounds. I suspect rib contusion but will obtain CT to evaluate for possible rib fracture. She has no tenderness elsewhere so I do not feel additional imaging indicated CT negative, patient sleeping on reassessment and awakens to voice and says that her pain is gone. I suspect rib contusion. Advise she should be using her walker as she says she has at home more often. She will follow-up with her PCP and return precautions given Differential Diagnosis Differential Diagnosis: Rib contusion, rib fracture Quality:SDOH Health Related Social Needs: No Data to Display PFSH All Active Problems (Updated 12/24/24 @ 08:15 by Alfredo Lagunas MD) Chest wall contusion (Acute) Lumbar spinal stenosis (Acute) Trochanteric bursitis, left hip (Acute) Bilateral leg weakness (Acute) Pes anserine bursitis (Acute) Spondylosis (Acute) Cardiac murmur (Acute) ECHO 10/2014 Hyperlipidemia (Acute) Osteoporosis (Chronic) Hyperparathyroidism (Acute) Asthma, mild intermittent (Acute) Depression (Chronic) Hypertension (Chronic) Sensorineural hearing loss of combined sites, bilateral (Acute 07/20/16) Prognathism (Acute 12/12/14) Obstructive sleep apnea (Acute 12/12/14) Medical History Essential tremor Dysphagia Diabetic polyneuropathy Abnormal colonoscopy Retinal detachment De Quervain's tenosynovitis Tubular adenoma polyp of rectum GERD (gastroesophageal reflux disease) Surgical History H/O umbilical hernia repair History of local excision of skin lesion 06/04/17 History of total left knee replacement 05/13/15 History of cholecystectomy 1976 History of appendectomy 1976 History of hysterectomy total w/BSO--1984 Social History Smoking/Tobacco Use Status: Never Smoking risk assessment performed?: Yes Alcohol Intake: never Drug use: Never Substance use type: does not use Housing: house Do you feel safe at home: Yes Do you feel safe in your relationship?: Yes
[2024-12-24] MEDS: Acetaminophen 500 MG TAB 1000 MG PO (07:23)
[2024-12-24] MEDS: Lidocaine 5% Patch 1 PATCH TP (07:24)
[2024-12-24] MEDS: Ketorolac 15 MG/ML VIAL IM (07:24)
[2024-12-24 07:34] VITALS: PULSE 65; O2SAT 92
--- NOTE | 2024-12-24 08:07 | DI.VRAD_ITS ---
PROCEDURE INFORMATION: Exam: CT Chest Without Contrast; Diagnostic Exam date and time: 12/24/2024 7:41 AM Age: 79 years old Clinical indication: Other: Left sided chest pain S/P fall yesterday TECHNIQUE: Imaging protocol: Diagnostic computed tomography of the chest without contrast. 3D rendering (Not supervised by radiologist): MIP and/or 3D reconstructed images were created by the technologist. COMPARISON: CT CHEST/ABD/PEL WO 11/17/2022 1:32 PM FINDINGS: Lungs: Stable 3 mm right middle lobe nodule, likely benign. No focal consolidation. Pleural spaces: Unremarkable. No pneumothorax. No pleural effusion. Heart: Unremarkable. No cardiomegaly. No pericardial effusion. Coronary arteries: Mild coronary artery calcification. Lymph nodes: Unremarkable. No enlarged lymph nodes. Vasculature: Unremarkable. No aortic aneurysm. Gallbladder and biliary ducts: Status post cholecystectomy. Bones/joints: Minimally displaced left lateral 6-8th rib fractures. Soft tissues: Unremarkable. IMPRESSION: Minimally displaced left lateral 6-8th rib fractures. Dictated and Authenticated by: Cami Larry MD. Orderin Bebo Fuentes MD
[2024-12-24 08:30] VITALS: BP 142/59; PULSE 64; RESP 14; O2SAT 95
== END 2024-12-24 08:37 | disposition home or self-care (01) ==
PROVIDERS: Emergency Provider Emergency Medicine; PCP Nurse Practitioner Family
DX: W19.XXXA Unspecified fall, initial encounter; S20.212A Contusion of left front wall of thorax, initial encounter
CPT/HCPCS: 71250; 96372; 99284; 99283; J1885

== ENCOUNTER 2025-01-02 15:09 | Emergency (ER) | payer MEDICARE, SELFPAY ==
[2025-01-02 15:12] VITALS: BP 168/91; PULSE 76; RESP 20; TEMP 36.3; O2SAT 93
[2025-01-02 15:15] VITALS: BP 168/91; PULSE 76; RESP 20; TEMP 36.3; O2SAT 93
--- NOTE | 2025-01-02 15:15 | DI.RAD_ITS ---
Exam(s) XR ABDOMEN FLAT PLATE EXAM: XR ABDOMEN FLAT PLATE CLINICAL HISTORY: constipation. TECHNIQUE: 2D digital imaging was performed. COMPARISON: No exams were available for comparison FINDINGS: AP supine view of the abdomen-pelvis There are multiple surgical clips in the right upper quadrant which are probably from prior cholecyst ectomy. There is air in the stomach but the stomach is not overly distended. There is abundant fecal material noted throughout the colon. No rectal distension evident. Phleboli ths are noted in both sides of the pelvis. No abnormal calcifications seen over the kidneys nor along the course of the ureters. No fractures nor osseous lesions. IMPRESSION: Moderate increased amount of fecal material throughout the colon consistent with probable constipatio n. There is no rectal distension evident. DATA REPOSITORY: RADIATION DOSE DELIVERED:
--- NOTE | 2025-01-02 15:26 | ED.GENADUL_ITS ---
Discharge Plan Disposition Patient Disposition: Home Condition: Stable Discharge Details Clinical Impression: Constipation Primary Care Provider: Kayla Grant ED Provider: Alfredo Lagunas Home Meds and New Rx's Prescriptions: Continued capsaicin [Salonpas-Hot] 0.025 % adhesive patch,medicated 1 patch topical BID PRN Rx Instructions: do not leave patch on for more than 8 hrs cholecalciferol (vitamin D3) 25 mcg (1,000 unit) capsule 25 mcg PO DAILY gabapentin 100 mg capsule 100 mg PO BID Alive Once Daily Women 50 Plus 800-100 mcg tablet 1 tab PO DAILY sumatriptan succinate [Imitrex] 50 mg tablet 50 mg PO ONCE fluticasone propion-salmeterol [Advair Diskus] 100-50 mcg/dose blister with device 1 inh inhalation BID vitamin B complex [B Complex-Vitamin B12] Tablet 1 tab PO DAILY omeprazole [Prilosec] 20 mg capsule,delayed release(DR/EC) 40 mg PO DAILY hydrochlorothiazide 25 mg tablet 25 mg PO DAILY propranolol 10 mg tablet 10 mg PO BID lisinopril 10 mg tablet 10 mg PO DAILY sertraline 100 mg tablet 100 mg PO DAILY aspirin [Aspir-81] 81 MG tablet,delayed release (DR/EC) 81 mg PO DAILY losartan 25 MG tablet 25 mg PO QAM albuterol sulfate [ProAir HFA] 200 PUFF HFA aerosol inhaler 2 puff Inhalation Q6H PRN PRNQty: 1 0RF (DME) AeroChamber Plus Z Stat Sm Msk 1 EACH spacer 1 ea Miscellaneous Q6H PRN Qty: 1 0RF lidocaine [Lidoderm] 5 % adhesive patch,medicated 1 patch topical DAILY Qty: 15 0RF Rx Instructions: leave on most painful area for up to 12 hrs lidocaine 5 % adhesive patch,medicated 1 patch topical DAILY PRN (Reason: pain) Qty: 30 0RF Rx Instructions: leave on most painful area for up to 12 hrs lamotrigine 25 mg tablet 25 mg PO BID Patient Comments: TAKE 1 TABLET BY MOUTH DAILY FOR 7 DAYS, THEN INCREASE TO 2 TABLETS DAILY tramadol 50 mg tablet 25 mg PO Q8H PRN (Reason: pain) Patient Comments: TAKE ONE-HALF TABLET BY MOUTH EVERY 6 TO 8 HOURS FOR FRACTURED RIBS Discharge Instructions Additional Instructions: Try to increase your daily water intake. You can take an [id number] daily stool softener such as docusate and also laxative daily such as MiraLAX or milk of magnesia. If you are still having issues with constipation and not improving within a week follow-up with your primary care provider. If you feel more ill or have new symptoms such as severe abdominal pain or vomiting return to the emergency department for reevaluation. HPI General Mode of arrival: ambulatory . Date/Time Provider Initiated Documentation: 01/02/25 15:10 . Limitations to Documentation: no limitations . Information obtained by: patient . History of Present Illness 79 year old F presents to the emergency department with the chief complaint of constipated, described as moderate, and is localized to the abdomen. Patient reports no radiation. Patient started experiencing this week(s) (2) and it has been constant. No relieving factors improve symptom(s), No exacerbating factors reported . Patient notes denies fever/chills and shortness of breath. Patient did receive the following treatments prior to arrival, none Related Data Home Medications ?Medication ?Instructions ?Recorded ?Confirmed aspirin 81 mg tablet,delayed 81 mg PO DAILY 01/28/13 01/02/25 release (Aspir-) losartan 25 mg tablet 25 mg PO QAM 07/06/14 01/02/25 albuterol sulfate 90 mcg/actuation 2 puff inhalation Q6H PRN PRN #1 08/23/16 01/02/25 aerosol inhaler (ProAir HFA) inh inhalational spacing device ##1 08/23/16 01/02/25 (AeroChamber Plus Z Stat Small Mask) fluticasone 100 mcg-salmeterol 50 1 inh inhalation BID 12/09/21 01/02/25 mcg/dose blistr powdr for inhalation (Advair Diskus) hydrochlorothiazide 25 mg tablet 25 mg PO DAILY 12/09/21 01/02/25 multivit,mineral-folic acid 800 1 tab PO DAILY 12/09/21 01/02/25 mcg-vit K 100 mcg-herbal no.289 tablet (Alive Once Daily Women 50 Plus) omeprazole 20 mg capsule,delayed 40 mg PO DAILY 12/09/21 01/02/25 release (Prilosec) propranolol 10 mg tablet 10 mg PO BID 12/09/21 01/02/25 sumatriptan succinate 50 mg tablet 50 mg PO ONCE 12/09/21 01/02/25 (Imitrex) vitamin B complex (B 1 tab PO DAILY 12/09/21 01/02/25 Complex-Vitamin B12 tablet) lidocaine 5 % topical patch 1 patch topical DAILY #15 ea 11/17/22 01/02/25 (Lidoderm) lisinopril 10 mg tablet 10 mg PO DAILY 07/20/23 01/02/25 sertraline 100 mg tablet 100 mg PO DAILY 07/20/23 01/02/25 capsaicin 0.025 % topical patch 1 patch topical BID PRN 10/21/23 01/02/25 (Salonpas-Hot) cholecalciferol (vitamin D3) 25 25 mcg PO DAILY 10/21/23 01/02/25 mcg (1,000 unit) capsule gabapentin 100 mg capsule 100 mg PO BID 10/21/23 01/02/25 lamotrigine 25 mg tablet 25 mg PO BID 09/28/24 01/02/25 lidocaine 5 % topical patch 1 patch topical DAILY PRN pain #30 12/24/24 01/02/25 ea tramadol 50 mg tablet 25 mg PO Q8H PRN pain 01/02/25 01/02/25 Previous Rx's ?Medication ?Instructions ?Recorded albuterol sulfate 90 mcg/actuation 2 puff inhalation Q6H PRN PRN #1 08/23/16 aerosol inhaler (ProAir HFA) inh inhalational spacing device ##1 08/23/16 (AeroChamber Plus Z Stat Small Mask) lidocaine 5 % topical patch 1 patch topical DAILY #15 ea 11/17/22 (Lidoderm) lidocaine 5 % topical patch 1 patch topical DAILY PRN pain #30 12/24/24 ea Allergies Allergy/AdvReac Type Severity Reaction Status Date / Time iodine Allergy Severe Anaphylaxsi Verified 01/02/25 15:16 s shellfish derived Allergy Severe Anaphylaxsi Verified 01/02/25 15:16 s General Stated Complaint: Abd Prob FAHAD: 3 Review of Systems All systems reviewed & are unremarkable except as noted in HPI and below Constitutional Constitutional: Denies chills, Denies fever(s) and Denies weakness Cardiovascular Cardiovascular: Denies chest pain and Denies dyspnea Respiratory Respiratory: Denies cough and Denies dyspnea Gastrointestinal Gastrointestinal: Denies abdominal pain, Reports constipation and Denies vomiting Musculoskeletal Musculoskeletal: Denies joint swelling Neurologic Neurologic: Denies weakness Psychiatric Psychiatric: Denies depression Exam Const General: no acute distress Orientation: alert HENVA Head: normal to inspection Ears: external ears normal General nose exam: external nose normal Mouth: moist mucous membranes Eyes General: appearance normal, both eyes and all related structures Neck Neck: normal visual inspection Resp Effort & Inspection: normal respiratory effort and able to speak in complete sentences Cardio Rate: regular rate GI Palpation: soft and nontender Skin General skin exam: no rashes or lesions noted Neuro General: patient alert and patient oriented x3 Extrem General: normal to inspection Psych Mental Status: mental status grossly normal Course Vital Signs Vital signs: Vital Signs Temperature 36.3 C L 01/02/25 15:12 Pulse 76 01/02/25 15:12 Respiratory Rate 20 01/02/25 15:12 Blood Pressure 168/91 H 01/02/25 15:12 Pulse Oximetry 93 01/02/25 15:12 Temperature 36.3 C L 01/02/25 15:15 Pulse 76 01/02/25 15:15 Respiratory Rate 20 01/02/25 15:15 Blood Pressure 168/91 H 01/02/25 15:15 Blood Pressure Position Sitting 01/02/25 15:15 Pulse Oximetry 93 01/02/25 15:15 Oxygen Delivery Method Room Air 01/02/25 15:15 Oxygen Flow Rate 0 01/02/25 15:15 Medical Decision Making 79-year-old female who had a mechanical fall on the sixth of this month and had left-sided rib fractures comes in with constipation since then. She says her chest pain is improving but has not had a regular bowel movement in 2 weeks. She denies any severe abdominal pain. Denies any vomiting or fevers. She is well-appearing on exam in no distress. Clear lungs, abdomen is soft and she has no tenderness. Lower abdomen does feel firm but again is not tender. I suspect constipation, will check basic labs and treat her symptoms with laxative and stool softener and obtain an x-ray. Given lack of abdominal tenderness doubt etiology such as bowel obstruction do not feel CAT scan at this time is indicated. Labs unremarkable and x-ray shows some evidence of constipation. She is stable and still has no abdominal tenderness. I recommend starting a daily laxative and also stool softener increase her water intake as she says she does not really drink a lot of water during the day. She will follow-up with her PCP if not improving and return precautions given Differential Diagnosis Differential Diagnosis: constipation, dehydration Quality:SDOH Health Related Social Needs: No Data to Display PFSH All Active Problems (Updated 01/02/25 @ 16:45 by Alfredo Lagunas MD) Constipation (Acute) Chest wall contusion (Acute) Lumbar spinal stenosis (Acute) Trochanteric bursitis, left hip (Acute) Bilateral leg weakness (Acute) Pes anserine bursitis (Acute) Spondylosis (Acute) Cardiac murmur (Acute) ECHO 10/2014 Hyperlipidemia (Acute) Osteoporosis (Chronic) Hyperparathyroidism (Acute) Asthma, mild intermittent (Acute) Depression (Chronic) Hypertension (Chronic) Sensorineural hearing loss of combined sites, bilateral (Acute 07/20/16) Prognathism (Acute 12/12/14) Obstructive sleep apnea (Acute 12/12/14) Medical History Essential tremor Dysphagia Diabetic polyneuropathy Abnormal colonoscopy Retinal detachment De Quervain's tenosynovitis Tubular adenoma polyp of rectum GERD (gastroesophageal reflux disease) Surgical History H/O umbilical hernia repair History of local excision of skin lesion 06/04/17 History of total left knee replacement 05/13/15 History of cholecystectomy 1976 History of appendectomy 1976 History of hysterectomy total w/BSO--1984 Social History Smoking/Tobacco Use Status: Never Smoking risk assessment performed?: Yes Alcohol Intake: never Drug use: Never Substance use type: does not use Housing: house Do you feel safe at home: Yes Do you feel safe in your relationship?: Yes
[2025-01-02] MEDS: Docusate Sodium 100 MG CAP PO (15:28)
[2025-01-02] MEDS: Milk of Magnesia 30 ML CUP PO (15:28)
[2025-01-02 15:53] LABS: Abs Immature Grans 0.02 10^3/uL (0.0-0.06); Absolute Basophil Count 0.03 10^3/uL (0.0-0.2); Absolute Eosinophil Count 0.24 10^3/uL (0.0-0.7); Absolute Lymphocyte Count 2.14 10^3/uL (1.2-3.4); Absolute Monocyte Count 0.74 10^3/uL (0.1-0.8); Absolute Neutrophil Count 4.27 10^3/uL (1.2-6.7); Basophils % 0.4 %; Eosinophils % 3.2 %; HCT 39.3 % (36.0-46.0); HGB 12.5 g/dL (11.2-15.7); Immature Grans % 0.3 %; Lymphocytes % 28.8 %; MCH 29.1 pg (27.0-33.0); MCHC 31.8 % (32.0-36.0); MCV 92 fL (80-95); MPV 8.7 fL (8.0-11.0); Monocytes % 9.9 %; Neutrophils % 57.4 %; Platelet Count 248 10^3/uL (130-400); RBC 4.29 10^6/uL (3.93-5.22); RDW 13.6 % (11.7-14.6); RDW-SD 46.2 fL; WBC 7.44 10^3/uL (4.4-10.8)
[2025-01-02 16:07] LABS: ALT 30 U/L (14-59); AST 23 U/L (15-37); Albumin 3.3 g/dL (3.4-5.0); Alkaline Phosphatase 105 U/L (46-116); Anion Gap 4.6 mmol/L (3-11); BUN 16 mg/dL (7-18); Bilirubin, Total 0.6 mg/dL (0.2-1.0); CO2 31.4 mmol/L (21.0-32.0); CREATININE 0.9 mg/dL (0.55-1.02); Calcium 9.9 mg/dL (8.5-10.1); Chloride 106 mmol/L (98-107); Estimated GFR 65.84 (mL/min/1.73m2); Glucose 110 mg/dL (74-106); Magnesium 1.9 mg/dL (1.8-2.4); Potassium 3.7 mmol/L (3.5-5.1); Sodium 142 mmol/L (136-145)
[2025-01-02 17:02] VITALS: BP 151/69; PULSE 73; RESP 20; TEMP 36.7; O2SAT 95
== END 2025-01-02 17:02 | disposition home or self-care (01) ==
PROVIDERS: Emergency Provider Emergency Medicine; PCP Nurse Practitioner Family
DX: K59.00 Constipation, unspecified (principal); E11.40 Type 2 diabetes mellitus with diabetic neuropathy, unspecified; I10 Essential (primary) hypertension; E78.5 Hyperlipidemia, unspecified; Z79.82 Long term (current) use of aspirin
CPT/HCPCS: 36415; 80053; 99284; 74018; 83735; 85025

== ENCOUNTER 2025-01-10 13:03 | Outpatient (CLI) | payer MEDICARE, SELFPAY ==
[2025-01-10 18:18] LABS: Albumin 3.6 g/dL (3.4-5.0); Anion Gap 6.6 mmol/L (3-11); BUN 21 mg/dL (7-18); CO2 33.4 mmol/L (21.0-32.0); Chloride 102 mmol/L (98-107); Estimated GFR 58.02 (mL/min/1.73m2); Glucose 92 mg/dL (74-106); Magnesium 1.9 mg/dL (1.8-2.4); PHOSPHORUS 4.5 mg/dL (2.6-4.7); Potassium 4.1 mmol/L (3.5-5.1); Sodium 142 mmol/L (136-145)
[2025-01-10 18:53] LABS: Vitamin D 25 Total 46 ng/mL (30-100)
[2025-01-11 21:29] LABS: Bacteria Negative HPF (Negative); C & S Indicated? C&S Done As Ordered; Crystals Many Amorphous HPF (Negative); Epithelial Cells Moderate HPF (Negative); Mucus Negative (Negative); RBC 0-2 HPF (0-2); WBC 0-2 HPF (0-5)
== END 2025-01-10 13:04 | disposition home or self-care (01) ==
LOC: LBO 01-11 13:04
PROVIDERS: Physician Assistant Medical; PCP Nurse Practitioner Family; Visit Provider Internal Medicine Endocrinology, Diabetes & Metabolism
DX: M81.0 Age-related osteoporosis without current pathological fracture (principal); R32 Unspecified urinary incontinence
CPT/HCPCS: 36415; 80069; 82306; 81015; 83735; 87086

== ENCOUNTER 2025-01-12 08:46 | Outpatient (CLI) | payer MEDICARE, SELFPAY ==
--- NOTE | 2025-01-12 | DI.RAD_ITS ---
Exam(s) XR CHEST 2V PA LATERAL EXAM: XR CHEST 2V PA LATERAL CLINICAL HISTORY: Chronic, persistent cough, R05.3. TECHNIQUE: 2D digital imaging was performed. COMPARISON: CR,XR XR CHEST 2V PA LATERAL from 10/31/[address] CHEST WO from 12/24/2024 FINDINGS: 2 views: Heart size is normal. The mediastinum is not widened. Multiple left rib fractures seen which are also identified on recent CT scan 12/24/2024 and were not evident on chest x-ray 10/31/2024. Slightly prominent right hilar region is unchanged from previous and is represented by normal pulmona ry vasculature on the recent CT scan of 12/24/2024. There are no lung infiltrates nor pleural effusions. Tiny thin scar or subsegmental platelike atelec tasis is noted adjacent to the left heart border in the inferior lingular segment of the left lung. IMPRESSION: No significant acute pulmonary findings. In platelike atelectasis in the lingular segment of the left lung. Suspect that this may be related to the recently acquired multiple left-sided rib fractures. However, there is no evidence of lung co ntusion, pleural effusion, nor pneumothorax. DATA REPOSITORY: RADIATION DOSE DELIVERED:
== END 2025-01-12 09:06 ==
LOC: DI 08:47
PROVIDERS: PCP Nurse Practitioner Family; Visit Provider Physician Assistant Medical
DX: R05.3 Chronic cough (principal)
CPT/HCPCS: 71046

== ENCOUNTER 2025-01-13 16:02 | Outpatient (REF) | payer MEDICARE, SELFPAY | END 2025-01-13 16:03 | disposition home or self-care (01) | LOC: LBN 16:02 | PROVIDERS: PCP Nurse Practitioner Family; Visit Provider Physician Assistant Medical | DX: R32 Unspecified urinary incontinence (principal) | CPT/HCPCS: 87086 ==

== ENCOUNTER 2025-01-18 16:44 | Emergency (ER) | payer MEDICARE, SELFPAY ==
[2025-01-18 16:45] VITALS: BP 138/83; PULSE 73; RESP 17; TEMP 36.5; O2SAT 92
--- NOTE | 2025-01-18 16:45 | RT.EKG_ITS ---
APPROVED REPORT Exam: Resting ECG Reason for Exam: SOB Patient Location: E HR:76 bpm ECG Measurements Heart Rate 76 AXIS IA 154 P 9 QRSd 89 QRS 32 QT 379 T 41 QTc 428 Conclusion Sinus rhythm...normal P axis, V-rate 60- 99
[2025-01-18 16:49] VITALS: BP 138/83; PULSE 73; RESP 17; TEMP 36.5; O2SAT 92
--- NOTE | 2025-01-18 16:57 | ED.GENADUL_ITS ---
Discharge Plan Disposition Patient Disposition: Home Condition: Stable Discharge Details Clinical Impression: Shortness of breath Primary Care Provider: Kayla Grant ED Provider: Alfredo Lagunas Woodrow Meds and New Rx's Prescriptions: New prednisone 20 mg tablet 60 mg PO DAILY 4 Days Qty: 12 0RF doxycycline hyclate 100 mg tablet 100 mg PO BID Qty: 14 0RF Continued capsaicin [Salonpas-Hot] 0.025 % adhesive patch,medicated 1 patch topical BID PRN Rx Instructions: do not leave patch on for more than 8 hrs cholecalciferol (vitamin D3) 25 mcg (1,000 unit) capsule 25 mcg PO DAILY gabapentin 100 mg capsule 100 mg PO BID Alive Once Daily Women 50 Plus 800-100 mcg tablet 1 tab PO DAILY sumatriptan succinate [Imitrex] 50 mg tablet 50 mg PO ONCE fluticasone propion-salmeterol [Advair Diskus] 100-50 mcg/dose blister with device 1 inh inhalation BID vitamin B complex [B Complex-Vitamin B12] Tablet 1 tab PO DAILY omeprazole [Prilosec] 20 mg capsule,delayed release(DR/EC) 40 mg PO DAILY hydrochlorothiazide 25 mg tablet 25 mg PO DAILY propranolol 10 mg tablet 10 mg PO BID lisinopril 10 mg tablet 10 mg PO DAILY sertraline 100 mg tablet 100 mg PO DAILY aspirin [Aspir-81] 81 MG tablet,delayed release (DR/EC) 81 mg PO DAILY losartan 25 MG tablet 25 mg PO QAM albuterol sulfate [ProAir HFA] 200 PUFF HFA aerosol inhaler 2 puff Inhalation Q6H PRN PRNQty: 1 0RF (DME) AeroChamber Plus Z Stat Sm Msk 1 EACH spacer 1 ea Miscellaneous Q6H PRN Qty: 1 0RF lidocaine [Lidoderm] 5 % adhesive patch,medicated 1 patch topical DAILY Qty: 15 0RF Rx Instructions: leave on most painful area for up to 12 hrs lidocaine 5 % adhesive patch,medicated 1 patch topical DAILY PRN (Reason: pain) Qty: 30 0RF Rx Instructions: leave on most painful area for up to 12 hrs lamotrigine 25 mg tablet 25 mg PO BID Patient Comments: TAKE 1 TABLET BY MOUTH DAILY FOR 7 DAYS, THEN INCREASE TO 2 TABLETS DAILY tramadol 50 mg tablet 25 mg PO Q8H PRN (Reason: pain) Patient Comments: TAKE ONE-HALF TABLET BY MOUTH EVERY 6 TO 8 HOURS FOR FRACTURED RIBS Discharge Instructions Additional Instructions: Your CAT scan and blood work did not show any concerning findings at this time. You should be using your incentive spirometer every 1-2 hours while awake. If you are not improving within a week follow-up with your primary care provider. If you feel significantly more ill or have severe worsening shortness of breath return to the emergency department for reevaluation HPI General Mode of arrival: ambulatory . Date/Time Provider Initiated Documentation: 01/18/25 16:50 . Limitations to Documentation: no limitations . Information obtained by: patient . History of Present Illness 79 year old F presents to the emergency department with the chief complaint of dyspnea, described as moderate, Patient started experiencing this week(s) (2) and it has been constant. Rest improves symptom(s), Movement worsens symptoms . Patient notes cough; denies fever/chills and nausea/vomiting. Related Data Home Medications ?Medication ?Instructions ?Recorded ?Confirmed aspirin 81 mg tablet,delayed 81 mg PO DAILY 01/28/13 01/18/25 release (Aspir-) losartan 25 mg tablet 25 mg PO QAM 07/06/14 01/18/25 albuterol sulfate 90 mcg/actuation 2 puff inhalation Q6H PRN PRN #1 08/23/16 01/18/25 aerosol inhaler (ProAir HFA) inh inhalational spacing device ##1 08/23/16 01/18/25 (AeroChamber Plus Z Stat Small Mask) fluticasone 100 mcg-salmeterol 50 1 inh inhalation BID 12/09/21 01/18/25 mcg/dose blistr powdr for inhalation (Advair Diskus) hydrochlorothiazide 25 mg tablet 25 mg PO DAILY 12/09/21 01/18/25 multivit,mineral-folic acid 800 1 tab PO DAILY 12/09/21 01/18/25 mcg-vit K 100 mcg-herbal no.289 tablet (Alive Once Daily Women 50 Plus) omeprazole 20 mg capsule,delayed 40 mg PO DAILY 12/09/21 01/18/25 release (Prilosec) propranolol 10 mg tablet 10 mg PO BID 12/09/21 01/18/25 sumatriptan succinate 50 mg tablet 50 mg PO ONCE 12/09/21 01/18/25 (Imitrex) vitamin B complex (B 1 tab PO DAILY 12/09/21 01/18/25 Complex-Vitamin B12 tablet) lidocaine 5 % topical patch 1 patch topical DAILY #15 ea 11/17/22 01/18/25 (Lidoderm) lisinopril 10 mg tablet 10 mg PO DAILY 07/20/23 01/18/25 sertraline 100 mg tablet 100 mg PO DAILY 07/20/23 01/18/25 capsaicin 0.025 % topical patch 1 patch topical BID PRN 10/21/23 01/18/25 (Salonpas-Hot) cholecalciferol (vitamin D3) 25 25 mcg PO DAILY 10/21/23 01/18/25 mcg (1,000 unit) capsule gabapentin 100 mg capsule 100 mg PO BID 10/21/23 01/18/25 lamotrigine 25 mg tablet 25 mg PO BID 09/28/24 01/18/25 lidocaine 5 % topical patch 1 patch topical DAILY PRN pain #30 12/24/24 01/18/25 ea tramadol 50 mg tablet 25 mg PO Q8H PRN pain 01/02/25 01/18/25 doxycycline hyclate 100 mg tablet 100 mg PO BID #14 tabs 01/18/25 prednisone 20 mg tablet 60 mg (3 x 20 mg) PO DAILY 4 days 01/18/25 #12 tabs Previous Rx's ?Medication ?Instructions ?Recorded albuterol sulfate 90 mcg/actuation 2 puff inhalation Q6H PRN PRN #1 08/23/16 aerosol inhaler (ProAir HFA) inh inhalational spacing device ##1 08/23/16 (AeroChamber Plus Z Stat Small Mask) lidocaine 5 % topical patch 1 patch topical DAILY #15 ea 11/17/22 (Lidoderm) lidocaine 5 % topical patch 1 patch topical DAILY PRN pain #30 12/24/24 ea doxycycline hyclate 100 mg tablet 100 mg PO BID #14 tabs 01/18/25 prednisone 20 mg tablet 60 mg (3 x 20 mg) PO DAILY 4 days 01/18/25 #12 tabs Allergies Allergy/AdvReac Type Severity Reaction Status Date / Time iodine Allergy Severe Anaphylaxsi Verified 01/18/25 16:50 s shellfish derived Allergy Severe Anaphylaxsi Verified 01/18/25 16:50 s General Stated Complaint: SOB FAHAD: 3 Review of Systems All systems reviewed & are unremarkable except as noted in HPI and below Constitutional Constitutional: Denies chills, Denies fever(s) and Denies weakness ENT Ears, Nose, Mouth, and Throat: Denies change in voice Cardiovascular Cardiovascular: Reports chest pain and Reports dyspnea Respiratory Respiratory: Reports cough and Reports dyspnea Gastrointestinal Gastrointestinal: Denies abdominal pain, Denies nausea and Denies vomiting Musculoskeletal Musculoskeletal: Denies joint swelling Neurologic Neurologic: Denies weakness Exam Const General: no acute distress Orientation: alert HENMT Head: normal to inspection Ears: external ears normal General nose exam: external nose normal Mouth: moist mucous membranes Eyes General: appearance normal, both eyes and all related structures Neck Neck: normal visual inspection Resp Effort & Inspection: normal respiratory effort and able to speak in complete sentences Auscultation: rhonchi Cardio Jugular venous pressure: no JVD Rate: regular rate GI Palpation: soft and nontender Skin General skin exam: no rashes or lesions noted Neuro General: patient alert and patient oriented x3 Extrem General: normal to inspection Psych Mental Status: mental status grossly normal Course Vital Signs Vital signs: Vital Signs Temperature 36.5 C 01/18/25 16:45 Pulse 73 01/18/25 16:45 Respiratory Rate 17 01/18/25 16:45 Blood Pressure 138/83 01/18/25 16:45 Pulse Oximetry 92 01/18/25 16:45 Temperature 36.5 C 01/18/25 16:49 Pulse 73 01/18/25 16:49 Respiratory Rate 17 01/18/25 16:49 Blood Pressure 138/83 01/18/25 16:49 Pulse Oximetry 92 01/18/25 16:49 Pain Level 2 01/18/25 16:49 Medical Decision Making 79-year-old female who had a fall in December and suffered some rib fractures has been having a cough and difficulty breathing for 2 weeks. She was put on prednisone and azithromycin and finished that and had minimal improvement. She has any fevers or chills. She followed up with [facility] care today and they noted room air saturations of 88% so she was given a DuoNeb and sent here. She says that the DuoNeb did seem to help. She is currently 93% room air and is in no distress. She is speaking full sentences, other than where her ribs are broken she has no chest pain. She has no calf tenderness. She has rhonchi in all lung beck on exam. I suspect component of bronchospasm and probably atelectasis from rib fractures and not taking deep breaths. Given continued symptoms will proceed with CBC, CMP, troponins and CTA of the chest to evaluate for possible PE versus pleural effusions versus pneumonia. Will treat her symptoms with a DuoNeb and Solu-Medrol and also give Benadryl as a premedication as she states she usually needs to get premedicated for CTs due to her allergies. Labs and imaging without emergent findings. Patient is stable and is 95% on room air and feels better. She states she only uses her incentive spirometer a few times a day and I recommended using a 1 to 2 hours every day while awake. I am going to put her on another short course of prednisone and also doxycycline. She is stable for discharge and will follow-up with her PCP, return precautions given Differential Diagnosis Differential Diagnosis: Pneumonia, PE, bronchospasm Medical Records Medical records reviewed: Yes I reviewed the patient's medical records. Lab Data Lab results reviewed: Yes I reviewed the patient's lab results. ECG Data Attestation: I personally reviewed and interpreted this ECG (s) as follows: Prior ECG tracings: not available for review Interpretation: sinus rate of 76 pr 154 no stemi Quality:SDOH Health Related Social Needs: No Data to Display FORMERLY [facility], [facility] All Active Problems (Updated 01/18/25 @ 19:44 by Alfredo Lagunas MD) Shortness of breath (Acute) Constipation (Acute) Chest wall contusion (Acute) Lumbar spinal stenosis (Acute) Trochanteric bursitis, left hip (Acute) Bilateral leg weakness (Acute) Pes anserine bursitis (Acute) Spondylosis (Acute) Cardiac murmur (Acute) ECHO 10/2014 Hyperlipidemia (Acute) Osteoporosis (Chronic) Hyperparathyroidism (Acute) Asthma, mild intermittent (Acute) Depression (Chronic) Hypertension (Chronic) Sensorineural hearing loss of combined sites, bilateral (Acute 07/20/16) Prognathism (Acute 12/12/14) Obstructive sleep apnea (Acute 12/12/14) Medical History Essential tremor Dysphagia Diabetic polyneuropathy Abnormal colonoscopy Retinal detachment De Quervain's tenosynovitis Tubular adenoma polyp of rectum GERD (gastroesophageal reflux disease) Surgical History H/O umbilical hernia repair History of local excision of skin lesion 06/04/17 History of total left knee replacement 05/13/15 History of cholecystectomy 1976 History of appendectomy 1976 History of hysterectomy total w/BSO--1984 Social History Smoking/Tobacco Use Status: Never Smoking risk assessment performed?: Yes Alcohol Intake: never Drug use: Never Substance use type: does not use Housing: house Do you feel safe at home: Yes Do you feel safe in your relationship?: Yes
--- NOTE | 2025-01-18 17:15 | DI.CT_ITS ---
Exam(s) CT CHEST PE CTA EXAM: CT CHEST PE CTA CLINICAL HISTORY: hypoxia, dyspnea. TECHNIQUE: Imaging Protocol: Axial CT angiography was performed with multi-slice acquisition and mu lti-planar reconstructions as well as axial, coronal and sagittal MIP reconstructions. Computer aided detection (CAD) was utilized. CONTRAST MATERIAL: Intravenous: Omnipaque 350 Contrast volume:100 ml The patient was pre-medicated prior to the scan with 150m of methylprednisolone and 50 milligrams of IV Benadryl COMPARISON: CT CT CHEST WO from 12/24/2024 FINDINGS: Pulmonary Arteries: No evidence of filling defect to suggest pulmonary emboli. Mediastinum and Ginger: No dominant adenopathy or fluid collection. Pulmonary parenchyma: Expiratory changes. No consolidation or dominant measurable mass. Pleura: No effusion or pneumothorax. Heart: The heart is mildly dilated, left atrium.. Mild coronary artery calcifications are seen. Aorta: Thoracic aorta non-dilated. No dissection. Upper abdomen: No acute findings. Bones: Mildly displaced left rib fractures, which were noted on prior exam. No spine shows degenerat ramirez changes. No compression fractures. Tubes, Catheters, and Lines: None Soft tissues: Unremarkable. IMPRESSION: No evidence of pulmonary embolism or other acute abnormality. Left rib fractures are again noted. RADIATION DOSE DELIVERED: Total DLP DATA REPOSITORY: All CT scans at this facility are submitted to the National Radiology Data Registry (NRDR) Dose Index Registry (DIR) with the [employer] (A[employer]). RADIATION OPTIMIZATION: All CT scans at this facility use at least one of these dose optimization te chniques: automated exposure control; mA and/or kV adjustment per patient size (includes targeted exa ms where dose is matched to clinical indication); or iterative reconstruction.
[2025-01-18 17:41] LABS: Abs Immature Grans 0.08 10^3/uL (0.0-0.06); Absolute Basophil Count 0.05 10^3/uL (0.0-0.2); Absolute Eosinophil Count 0.34 10^3/uL (0.0-0.7); Basophils % 0.4 %; Eosinophils % 2.8 %; HCT 40.1 % (36.0-46.0); HGB 12.7 g/dL (11.2-15.7); Immature Grans % 0.7 %; Lymphocytes % 30.5 %; MCH 29.1 pg (27.0-33.0); MCHC 31.7 % (32.0-36.0); MCV 92 fL (80-95); MPV 8.7 fL (8.0-11.0); Monocytes % 9.6 %; Platelet Count 300 10^3/uL (130-400); RBC 4.36 10^6/uL (3.93-5.22); RDW 13.3 % (11.7-14.6); RDW-SD 45.6 fL; WBC 12.14 10^3/uL (4.4-10.8)
[2025-01-18 17:43] LABS: Absolute Monocyte Count 1.17 10^3/uL (0.1-0.8)
[2025-01-18] MEDS: methylPREDNISolone SUCC 125 MG VIAL IVP (17:44)
[2025-01-18] MEDS: diphenhydrAMINE 50 MG/ML VIAL IVP (17:44)
[2025-01-18] MEDS: Normal Saline Flush 10 ML SYR IVP (17:45)
[2025-01-18] MEDS: Albuterol/Ipratropium 3 ML UPD VIAL UPD (17:45)
[2025-01-18 17:55] LABS: PTT Activated 22.9 sec (20.6-30.2); Prothrombin Time 10.3 sec (9.1-11.1)
[2025-01-18 18:06] LABS: ALT 34 U/L (14-59); AST 24 U/L (15-37); Albumin 3.3 g/dL (3.4-5.0); Alkaline Phosphatase 102 U/L (46-116); Anion Gap 6.6 mmol/L (3-11); BUN 23 mg/dL (7-18); Bilirubin, Total 0.5 mg/dL (0.2-1.0); CO2 33.4 mmol/L (21.0-32.0); Calcium 9.8 mg/dL (8.5-10.1); Chloride 104 mmol/L (98-107); Estimated GFR 58.02 (mL/min/1.73m2); Glucose 112 mg/dL (74-106); Magnesium 1.9 mg/dL (1.8-2.4); NT-proBNP 223 pg/mL (<300); Potassium 3.2 mmol/L (3.5-5.1); Sodium 144 mmol/L (136-145); Total Protein 6.8 g/dL (6.4-8.2); Troponin I 4 ng/L (<or=51)
[2025-01-18] MEDS: Omnipaque 350 MG/ML 100 ML BTL IJ (18:21)
[2025-01-18] MEDS: Normal Saline - Diluent 50 ML VIAL IJ (18:23)
[2025-01-18 19:00] VITALS: BP 141/61; RESP 16; O2SAT 92
[2025-01-18 19:20] LABS: Troponin I 5 ng/L (<or=51)
[2025-01-18 19:52] VITALS: BP 136/67; PULSE 77; RESP 16; TEMP 36.8; O2SAT 99
[2025-01-18 19:54] VITALS: BP 136/67; PULSE 74; RESP 18; O2SAT 92
== END 2025-01-18 19:55 | disposition home or self-care (01) ==
PROVIDERS: Emergency Provider Emergency Medicine; PCP Nurse Practitioner Family
DX: R06.02 Shortness of breath (principal); S22.42XD Multiple fractures of ribs, left side, subsequent encounter for fracture with routine healing; E11.40 Type 2 diabetes mellitus with diabetic neuropathy, unspecified; I10 Essential (primary) hypertension; Z79.82 Long term (current) use of aspirin; X58.XXXD Exposure to other specified factors, subsequent encounter
CPT/HCPCS: 71275; 80053; 93005; 94640; 96374; 96375; 99285; 83735; 83880; 84484; 85025; 85610; 85730; 93010; J1200; J2919; J3490; J7620

== ENCOUNTER 2025-02-09 17:22 | Outpatient (REF) | payer MEDICARE, SELFPAY ==
[2025-02-09 17:05] LABS: Bacteria Moderate HPF (Negative); C & S Indicated? C&S Done As Ordered; Casts Negative LPF (Negative); Crystals Negative HPF (Negative); Epithelial Cells Few HPF (Negative); Mucus Trace (Negative); RBC 0-2 HPF (0-2)
== END 2025-02-09 17:23 | disposition home or self-care (01) ==
LOC: LBN 17:22
PROVIDERS: PCP Nurse Practitioner Family; Visit Provider Physician Assistant Medical
DX: R30.0 Dysuria (principal); N89.8 Other specified noninflammatory disorders of vagina
CPT/HCPCS: 87077; 81015; 87086; 87186; 87480; 87510; 87660

== ENCOUNTER 2025-03-06 17:32 | Outpatient (REF) | payer MEDICARE, SELFPAY ==
[2025-03-06 19:31] LABS: HCT 41.7 % (36.0-46.0); HGB 12.9 g/dL (11.2-15.7); MCH 28.1 pg (27.0-33.0); MCHC 30.9 % (32.0-36.0); MCV 91 fL (80-95); MPV 9.7 fL (8.0-11.0); Platelet Count 251 10^3/uL (130-400); RBC 4.59 10^6/uL (3.93-5.22); RDW 13.6 % (11.7-14.6); RDW-SD 46.2 fL; WBC 7.37 10^3/uL (4.4-10.8)
[2025-03-06 19:42] LABS: Hemoglobin A1C 6.2 % (<5.7)
[2025-03-06 19:47] LABS: Iron 52 ug/dL (50-170); Total Iron Binding Capacity 279 ug/dL (250-450); Transferrin Sat 19 % (15-50)
[2025-03-06 20:35] LABS: ALT 25 U/L (14-59); AST 26 U/L (15-37); Albumin 3.3 g/dL (3.4-5.0); Alkaline Phosphatase 100 U/L (46-116); Anion Gap 4.5 mmol/L (3-11); BUN 13 mg/dL (7-18); Bilirubin, Total 0.5 mg/dL (0.2-1.0); CO2 33.5 mmol/L (21.0-32.0); CREATININE 0.9 mg/dL (0.55-1.02); Calcium 9.5 mg/dL (8.5-10.1); Calculated LDL 91 mg/dL (<100); Chloride 103 mmol/L (98-107); Cholesterol 176 mg/dL (<200); Estimated GFR 65.84 (mL/min/1.73m2); Ferritin 96 ng/mL (8-252); Folate 10.4 ng/mL (8.6-20.0); Glucose 101 mg/dL (74-106); HDL Cholesterol 37 mg/dL (>or=50); Potassium 3.9 mmol/L (3.5-5.1); Sodium 141 mmol/L (136-145); TSH 1.69 uIU/mL (0.36-3.74); Total Protein 7.1 g/dL (6.4-8.2); Triglyceride 243 mg/dL (<150); Vitamin B12 411 pg/mL (193-986); Vitamin D 25 Total 43 ng/mL (30-100)
[2025-03-06 21:01] LABS: FREE T4 0.97 ng/dL (0.76-1.46)
[2025-03-07 18:42] LABS: T3, Total 138 ng/dL (97-169)
== END 2025-03-06 17:33 | disposition home or self-care (01) ==
LOC: NCHCN 17:32
PROVIDERS: PCP Nurse Practitioner Family; Visit Provider Family Medicine
DX: R53.83 Other fatigue (principal); E05.90 Thyrotoxicosis, unspecified without thyrotoxic crisis or storm; I10 Essential (primary) hypertension
CPT/HCPCS: 80053; 80061; 82306; 85027; 82607; 82728; 82746; 83036; 83540; 83550; 84439; 84443; 84480

== ENCOUNTER 2025-05-25 17:48 | Outpatient (CLI) | payer MEDICARE, SELFPAY ==
--- NOTE | 2025-05-25 18:09 | DI.RAD_ITS ---
Exam(s) XR CHEST 2V PA LATERAL EXAM: XR CHEST 2V PA LATERAL CLINICAL HISTORY: Upper respiratory tract infection, unspecified type TECHNIQUE: 2D digital imaging was performed of the chest. Two images were obtained. PA and lateral views were obtained. COMPARISON: CR XR CHEST 2V PA LATERAL from 05/06/2021 CR XR CHEST 2V PA LATERAL from 07/19/2024 CR XR CHEST 2V PA LATERAL from 09/28/[address] CHEST WO from 12/24/2024 CR XR CHEST 2V PA LATERAL from 01/12/[address] CHEST PE CTA from 01/18/2025 FINDINGS: MEDIASTINUM: Stable appearance of the mediastinum. HEART: Normal. PULMONARY VASCULATURE: Normal. There is again seen an enlarged pulmonary artery accounting for the enlarged right hilum. LUNGS: Clear. PLEURAL SPACE: No pleural effusion or pneumothorax. BONE:Within normal limits for the patient's age. OTHER FINDINGS:Normal. IMPRESSION: 1. No acute pulmonary findings. 2. The preliminary [facility] report was reviewed. DATA REPOSITORY: RADIATION DOSE DELIVERED:
--- NOTE | 2025-05-25 18:41 | DI.[facility]_ITS ---
PROCEDURE INFORMATION: Exam: XR Chest Exam date and time: 05/25/2025 18:03 Age: 80 years old Clinical indication: Other: Upper respiratory tract infection, unspecified type TECHNIQUE: Imaging protocol: Radiologic exam of the chest. Views: 2 views. COMPARISON: CT CHEST PE CTA 01/18/2025 18:07 FINDINGS: Lungs: No airspace consolidation. No significant interstitial disease for the degree of inflation. Enlarged right hilum. Pleural spaces: No pleural effusion. No pneumothorax. Heart/Mediastinum: No cardiomegaly. Bones/joints: No acute fracture. Intraperitoneal space: Right upper quadrant clips, probable cholecystectomy. IMPRESSION: Enlarged right hilum. Favor this is on the basis of PA enlargement rather than a mass lesion or adenopathy. Could be worked up with CT thorax if clinically indicated. Dictated and Authenticated by: Aleah Garcia MD. Orderin Ashley Fontaine MD
== END 2025-05-25 18:08 ==
PROVIDERS: PCP Nurse Practitioner Family; Visit Provider Physician Assistant Medical
DX: J06.9 Acute upper respiratory infection, unspecified (principal)
CPT/HCPCS: 71046

== ENCOUNTER 2025-05-25 21:51 | Outpatient (REF) | payer MEDICARE, SELFPAY ==
[2025-05-25 22:13] LABS: WBC >50 HPF (0-5)
== END 2025-05-25 21:52 | disposition home or self-care (01) ==
LOC: LBN 21:51
PROVIDERS: PCP Nurse Practitioner Family; Visit Provider Physician Assistant Medical
DX: R32 Unspecified urinary incontinence (principal)
CPT/HCPCS: 87077; 81015; 87086; 87186

== ENCOUNTER 2025-08-10 08:57 | Outpatient (CLI) | payer MEDICARE, SELFPAY ==
[2025-08-10 15:13] LABS: Magnesium 1.8 mg/dL (1.6-2.6)
[2025-08-10 15:18] LABS: Vitamin D 25 Total 31 ng/mL (30-100)
== END 2025-08-10 08:58 | disposition home or self-care (01) ==
LOC: LBO 08:58
PROVIDERS: PCP Nurse Practitioner Family; Visit Provider Internal Medicine Endocrinology, Diabetes & Metabolism
DX: M81.0 Age-related osteoporosis without current pathological fracture (principal)
CPT/HCPCS: 36415; 80076; 82306; 83735